=== PATIENT | female | born 1995 | race Two or more races ===

== ENCOUNTER → 2024-08-20 | Outpatient (CLI) | payer BC, SELFPAY ==
[2024-08-20 14:01] LABS: Basophils % (Auto) 0 % (0-2.5); Eosinophils # (Auto) 0.2 Thou/mm3 (0.0-0.5); Eosinophils % (Auto) 3 % (0-10); Hematocrit 30.7 % (36.0-46.0); Hemoglobin 9.4 g/dL (12.0-16.0); Immature Granulocytes % (Auto) 0 % (0-0); Immature Granulocytes Auto 0.01 Thou/mm3 (0.00-0.00); Immature Reticulocyte Fraction 17.4 % (3.0-15.9); Lymphocytes # (Auto) 2.5 Thou/mm3 (1.0-4.8); Lymphocytes % (Auto) 45 % (10-50); Mean Corpuscular HGB Conc 30.6 g/dl (31.0-37.0); Mean Corpuscular Hemoglobin 24.4 pg (25.0-35.0); Mean Corpuscular Volume 80 fL (80-100); Monocytes # (Auto) 0.6 Thou/mm3 (0.0-0.8); Monocytes % (Auto) 10 % (0-12); Neutrophils # (Auto) 2.3 Thou/mm3 (1.8-7.7); Neutrophils % (Auto) 42 % (37-80); Nucleated Red Blood Cell % 0 /100 WBC (0); Platelet Count 323 Thou/mm3 (140-440); RDW Standard Deviation 45.1 fL (36.4-46.3); Red Blood Count 3.86 Miln/mm3 (4.00-5.20); Reticulocyte % (Auto) 0.7 % (0.5-1.5); Reticulocyte Absolute Auto 27.8 Biln/L (25.0-75.0); Reticulocyte Hgb Content 28.2 pg (28.0-35.0); White Blood Count 5.5 Thou/mm3 (3.6-11.0)
[2024-08-20 14:27] LABS: Alanine Aminotransferase 23 U/L (10-49); Albumin/Globulin Ratio 1.5 (1.2-2.2); Alkaline Phosphatase 73 U/L (46-116); Anion Gap 7 (7-16); Aspartate Amino Transferase 38 U/L (0-34); BUN/Creatinine Ratio 20 Ratio (12-20); Bilirubin,Total 0.4 mg/dL (0.3-1.2); Blood Urea Nitrogen 12 mg/dL (9-23); Calcium 9.3 mg/dL (8.3-10.6); Calcium (Corrected) 9.3 mg/dL (8.5-10.1); Carbon Dioxide 26.3 mMol/L (20.0-31.0); Chloride 106 mMol/L (98-107); Creatinine (Component) 0.6 mg/dL (0.6-1.3); Globulin 2.6 gm/dL (2.3-3.5); Glucose 77 mg/dL (74-106); Osmolality,Calculated 276 (275-295); Potassium 3.7 mMol/L (3.4-5.1); Sodium 139 mMol/L (136-145); Total Protein 6.6 gm/dL (5.7-8.2); eGFR > 60 See Note
[2024-08-20 14:30] LABS: Folate 11.13 ng/mL (>5.38); Vitamin B12 829 pg/mL (211-911)
[2024-08-20 14:41] LABS: Ferritin 5 ng/mL (7.3-270.7); Total Iron Binding Capacity 369 mcg/dL (250-425)
[2024-08-20 14:50] LABS: Iron 22 mcg/dL (50-170); Percent Iron Saturation 5 % (20-55); Unsaturated Iron Binding 347 (225-295)
== END | disposition home or self-care (01) ==
LOC: SCTO 13:21
PROVIDERS: PCP Family Medicine; Referring Provider Internal Medicine Hematology & Oncology; Visit Provider Internal Medicine Hematology & Oncology
DX: D50.9 Iron deficiency anemia, unspecified (principal)
CPT/HCPCS: 36415; 80053; 82607; 82728; 82746; 83540; 83550; 85025; 85046

== ENCOUNTER 2024-08-21 10:49 | Outpatient (RCR) | payer BC, SELFPAY | END 2024-08-25 23:59 | disposition home or self-care (01) | LOC: SCTC 10:49 | PROVIDERS: PCP Nurse Practitioner Family; Referring Provider Nurse Practitioner Family; Visit Provider Nurse Practitioner Family | DX: D50.9 Iron deficiency anemia, unspecified (principal); N92.0 Excessive and frequent menstruation with regular cycle; F17.290 Nicotine dependence, other tobacco product, uncomplicated; Z86.718 Personal history of other venous thrombosis and embolism; Z79.01 Long term (current) use of anticoagulants | CPT/HCPCS: 99212; G0463 ==

== ENCOUNTER → 2024-08-22 | Outpatient (CLI) | payer BC, MEDICAID, SELFPAY ==
[2024-08-23 15:42] LABS: BVAG Candida Positive (Negative); Bacterial Vaginosis Markers Negative (Negative); Candida glabrata Negative (Negative); Candida krusei PCR Negative (Negative); Trichomonas Negative (Negative)
== END | disposition home or self-care (01) ==
PROVIDERS: PCP Specialist; Referring Provider Specialist; Visit Provider Specialist
DX: B37.89 Other sites of candidiasis (principal); N76.0 Acute vaginitis; A59.01 Trichomonal vulvovaginitis
CPT/HCPCS: 81514

== ENCOUNTER → 2024-08-22 | Outpatient (CLI) | payer BC, MEDICAID, SELFPAY ==
[2024-08-22 09:37] LABS: Basophils % (Auto) 1 % (0-2.5); Eosinophils # (Auto) 0.2 Thou/mm3 (0.0-0.5); Eosinophils % (Auto) 4 % (0-10); Hematocrit 31.7 % (36.0-46.0); Hemoglobin 9.7 g/dL (12.0-16.0); Immature Granulocytes % (Auto) 0 % (0-0); Immature Granulocytes Auto 0.01 Thou/mm3 (0.00-0.00); Immature Reticulocyte Fraction 23.5 % (3.0-15.9); Lymphocytes # (Auto) 1.8 Thou/mm3 (1.0-4.8); Lymphocytes % (Auto) 41 % (10-50); Mean Corpuscular HGB Conc 30.6 g/dl (31.0-37.0); Mean Corpuscular Hemoglobin 24.6 pg (25.0-35.0); Mean Corpuscular Volume 80 fL (80-100); Monocytes # (Auto) 0.2 Thou/mm3 (0.0-0.8); Monocytes % (Auto) 6 % (0-12); Neutrophils # (Auto) 2.1 Thou/mm3 (1.8-7.7); Neutrophils % (Auto) 48 % (37-80); Nucleated Red Blood Cell % 0 /100 WBC (0); Platelet Count 355 Thou/mm3 (140-440); Red Blood Count 3.95 Miln/mm3 (4.00-5.20); Reticulocyte % (Auto) 1.1 % (0.5-1.5); Reticulocyte Absolute Auto 42.3 Biln/L (25.0-75.0); Reticulocyte Hgb Content 25.6 pg (28.0-35.0); White Blood Count 4.3 Thou/mm3 (3.6-11.0)
[2024-08-22 09:56] LABS: Carbon Dioxide 29.1 mMol/L (20.0-31.0); Chloride 101 mMol/L (98-107); Sodium 138 mMol/L (136-145)
[2024-08-22 09:57] LABS: Alanine Aminotransferase 369 U/L (10-49); Albumin, Serum 4.6 gm/dL (3.5-5.0); Albumin/Globulin Ratio 1.5 (1.2-2.2); Alkaline Phosphatase 93 U/L (46-116); Anion Gap 8 (7-16); Aspartate Amino Transferase 472 U/L (0-34); BUN/Creatinine Ratio 12 Ratio (12-20); Beta HCG,Quantitative < 1 mIU/mL (<5.0); Bilirubin,Total 0.4 mg/dL (0.3-1.2); Blood Urea Nitrogen 7 mg/dL (9-23); Calcium 9.5 mg/dL (8.3-10.6); Calcium (Corrected) 9.5 mg/dL (8.5-10.1); Creatinine (Component) 0.6 mg/dL (0.6-1.3); Glucose 78 mg/dL (74-106); Osmolality,Calculated 272 (275-295); Total Protein 7.6 gm/dL (5.7-8.2); eGFR > 60 See Note
[2024-08-22 10:07] LABS: Folate 13.94 ng/mL (>5.38); Vitamin B12 1079 pg/mL (211-911)
[2024-08-22 10:29] LABS: D-Dimer 910 ng/mL (<600)
[2024-08-22 11:29] LABS: Ferritin 15 ng/mL (7.3-270.7); Total Iron Binding Capacity 390 mcg/dL (250-425)
[2024-08-22 11:40] LABS: Iron 15 mcg/dL (50-170); Percent Iron Saturation 3 % (20-55); Unsaturated Iron Binding 375 (225-295)
[2024-08-22 17:38] LABS: RA Screen Negative (Negative)
[2024-08-29 07:10] LABS: Protein C Activity* 97 % normal (70-180); Protein S Activity* 56 % normal (60-140)
[2024-09-02 15:37] LABS: Cardiolipin Ab IgA <2.0 APL-U/mL; Cardiolipin Ab IgG <2.0 GPL-U/mL; Sjogren's antibody (SS-A) <1.0 NEG AI (<1.0 NEGATIVE); Sm Antibody <1.0 NEG AI (<1.0 NEGATIVE)
[2024-09-03 06:55] LABS: ANA Screen, IFA NEGATIVE (NEGATIVE); Actin Antibody (IgG)* <20 U; Complement Component C3* 134 mg/dL (83-193); Complement Component C4c* 23 mg/dL (15-57); DNA (ds) Antibody* <1 IU/mL; Factor V Leiden Mutation NEGATIVE; Gastric Parietal Cell Ab* <20.0 U; Mitochondrial Ab NEGATIVE (NEGATIVE); Myocardial Ab, IF NEGATIVE (NEGATIVE); Scl-70 Antibody* <1.0 NEG AI (<1.0 NEGATIVE); Sjogren's Antibody (SS-B) <1.0 NEG AI (<1.0 NEGATIVE); Sm/RNP Antibody <1.0 NEG AI (<1.0 NEGATIVE); Striated Muscle Ab NEGATIVE (NEGATIVE); Thyroid Peroxidase Antibodies* 4 IU/mL (<9)
[2024-09-03 06:56] LABS: B2-Glycoprotein I Ab IgA <2.0 U/mL; B2-Glycoprotein I Ab IgG <2.0 U/mL; B2-Glycoprotein I Ab IgM 6.7 U/mL; Cardiolipin Ab IgM 2.4 MPL-U/mL; Phos.Serine Ab IgG <9 U (< OR = 30); Phos.Serine Ab IgM 39 U (< OR = 30)
== END | disposition home or self-care (01) ==
PROVIDERS: PCP Nurse Practitioner Family; Referring Provider Nurse Practitioner Family; Visit Provider Nurse Practitioner Family
DX: D50.9 Iron deficiency anemia, unspecified (principal)
CPT/HCPCS: 36415; 80053; 81241; 82607; 82728; 82746; 83516; 83540; 83550; 84702; 85025; 85046; 85303; 85306; 85379; 86015; 86038; 86146; 86147; 86148; 86160; 86225; 86235; 86255; 86376; 86430

== ENCOUNTER → 2024-08-28 | Outpatient (CLI) | payer BC, MEDICAID, SELFPAY ==
[2024-08-28 15:44] LABS: Misc Send Out* See Sep Rpt
[2024-08-28 16:44] LABS: Alanine Aminotransferase 83 U/L (10-49); Albumin, Serum 4.3 gm/dL (3.5-5.0); Albumin/Globulin Ratio 1.7 (1.2-2.2); Alkaline Phosphatase 93 U/L (46-116); Anion Gap 7 (7-16); Aspartate Amino Transferase 23 U/L (0-34); BUN/Creatinine Ratio 14 Ratio (12-20); Bilirubin,Total 0.3 mg/dL (0.3-1.2); Blood Urea Nitrogen 11 mg/dL (9-23); Calcium 9.1 mg/dL (8.3-10.6); Calcium (Corrected) 9.1 mg/dL (8.5-10.1); Carbon Dioxide 27.9 mMol/L (20.0-31.0); Chloride 100 mMol/L (98-107); Creatinine (Component) 0.8 mg/dL (0.6-1.3); Globulin 2.5 gm/dL (2.3-3.5); Glucose 320 mg/dL (74-106); Osmolality,Calculated 281 (275-295); Potassium 4.2 mMol/L (3.4-5.1); Sodium 135 mMol/L (136-145); Total Protein 6.8 gm/dL (5.7-8.2); eGFR > 60 See Note
[2024-08-28 17:06] LABS: Glucose Estimated Average 292 mg/dL (80-131); Hemoglobin A1C 11.8 % Hgb (4.8-6.0)
[2024-09-04 06:25] LABS: C-Peptide* <0.10 ng/mL (0.80-3.85); Insulin* 20.8 uIU/mL (< OR = 18.4)
== END | disposition home or self-care (01) ==
LOC: COPL 15:14
PROVIDERS: PCP Nurse Practitioner Family; Referring Provider Internal Medicine Endocrinology, Diabetes & Metabolism; Visit Provider Internal Medicine Endocrinology, Diabetes & Metabolism
DX: E10.65 Type 1 diabetes mellitus with hyperglycemia (principal); E16.2 Hypoglycemia, unspecified
CPT/HCPCS: 36415; 80053; 83036; 83525; 84681

== ENCOUNTER 2024-09-03 16:28 | Emergency (ER) | payer BC, MEDICAID, SELFPAY ==
[2024-09-03 16:29] VITALS: BMI 20.1
[2024-09-03 16:42] VITALS: BP 118/70; PULSE 110; RESP 18; TEMP 37; O2SAT 95
--- NOTE | 2024-09-03 17:01 | PD.EDRME ---
Rapid Medical Screening Exam RME Arrival date/time: 09/03/24 16:28 29-year-old female presents emergency department complaints of left lower extremity swelling and pain patient report symptoms ongoing for last couple of weeks patient currently on Xarelto and is being followed by cancer treatment center Chief Complaint: Extremity Problem,Nontraumatic Time Seen by Provider: 09/03/24 16:59 Vital signs: Vital Signs Temperature 98.6 F 09/03/24 16:42 Pulse Rate 110 H 09/03/24 16:42 Respiratory Rate 18 09/03/24 16:42 Blood Pressure 118/70 09/03/24 16:42 Pulse Oximetry (%) 95 09/03/24 16:42 Oxygen Delivery Method Room Air 09/03/24 16:42
[2024-09-03 17:20] LABS: Basophils % (Auto) 0 % (0-2.5); Eosinophils # (Auto) 0.2 Thou/mm3 (0.0-0.5); Eosinophils % (Auto) 2 % (0-10); Hematocrit 32.1 % (36.0-46.0); Hemoglobin 9.9 g/dL (12.0-16.0); Immature Granulocytes % (Auto) 0 % (0-0); Immature Granulocytes Auto 0.01 Thou/mm3 (0.00-0.00); Lymphocytes # (Auto) 1.9 Thou/mm3 (1.0-4.8); Lymphocytes % (Auto) 25 % (10-50); Mean Corpuscular HGB Conc 30.8 g/dl (31.0-37.0); Mean Corpuscular Volume 78 fL (80-100); Monocytes # (Auto) 0.4 Thou/mm3 (0.0-0.8); Monocytes % (Auto) 5 % (0-12); Neutrophils # (Auto) 5.3 Thou/mm3 (1.8-7.7); Neutrophils % (Auto) 68 % (37-80); Nucleated Red Blood Cell % 0 /100 WBC (0); Platelet Count 438 Thou/mm3 (140-440); RDW Standard Deviation 43.3 fL (36.4-46.3); Red Blood Count 4.12 Miln/mm3 (4.00-5.20); White Blood Count 7.9 Thou/mm3 (3.6-11.0)
[2024-09-03 17:42] VITALS: BP 136/79; PULSE 102; RESP 16; TEMP 37.1; O2SAT 97
[2024-09-03 17:45] LABS: INR 0.9 (0.9-1.3); Partial Thromboplastin Time 24.1 Seconds (22.0-36.0); Prothrombin Time 10.3 Seconds (9.0-12.2)
[2024-09-03 17:46] LABS: HCG,Qualitative Serum Negative
[2024-09-03 17:58] LABS: Alanine Aminotransferase 28 U/L (10-49); Albumin, Serum 4.9 gm/dL (3.5-5.0); Albumin/Globulin Ratio 1.5 (1.2-2.2); Alkaline Phosphatase 117 U/L (46-116); Anion Gap 12 (7-16); Aspartate Amino Transferase 14 U/L (0-34); BUN/Creatinine Ratio 8 Ratio (12-20); Bilirubin,Total 0.5 mg/dL (0.3-1.2); Blood Urea Nitrogen 13 mg/dL (9-23); Calcium 9.9 mg/dL (8.3-10.6); Calcium (Corrected) 9.9 mg/dL (8.5-10.1); Chloride 95 mMol/L (98-107); Creatinine (Component) 1.6 mg/dL (0.6-1.3); Estimated Creatinine Clearance 41.6 mL/min (>60); Globulin 3.2 gm/dL (2.3-3.5); Osmolality,Calculated 289 (275-295); Potassium 4.7 mMol/L (3.4-5.1); Sodium 133 mMol/L (136-145); Total Protein 8.1 gm/dL (5.7-8.2); eGFR 45 See Note
[2024-09-03 18:09] LABS: Glucose 520 mg/dL (74-106)
[2024-09-03] MEDS: INSULIN HUM REGULAR 1 UNIT/0.01 ML (PER UNIT) 10 UNIT IV (18:40)
--- NOTE | 2024-09-03 18:42 | PD.EDEXREM ---
ED Extremity Problem RME/HPI General Chief complaint: Extremity Problem,Nontraumatic Stated complaint: DVT Time Seen by Provider: 09/03/24 16:59 Arrival date/time: 09/03/24 16:28 Limitations: no limitations RME / HPI RME / HPI Narrative: 09/03/24 16:28 29-year-old female presents emergency department complaints of left lower extremity swelling and pain patient report symptoms ongoing for last couple of weeks patient currently on Xarelto and is being followed by cancer treatment center ----- [facility] Main ED Evaluation: 29yo female with a history of PE, DVT, DM presents to the ED for a chief complaint of left leg swelling x 3 days. Patient states she is on day 9 of taking her Xarelto. She states she was told to come here for evaluation by her PCP. She denies any chest pain, shortness of breath, fever, chills or any other associated symptoms. No known allergies. Related Data Home Medications ?Medication ?Instructions ?Recorded ?Confirmed aspirin 81 mg tablet 81 mg PO QDAY 01/04/22 01/04/22 enoxaparin 60 mg/0.6 mL 60 mg subcut BID 01/04/22 01/04/22 subcutaneous syringe insulin lispro 100 unit/mL 20 unit subcut TIDWMEAL 01/04/22 01/04/22 subcutaneous pen (Admelog SoloStar U-100 Insulin lispro) prenat.vits,perez,[id number] 1 tab PO QDAY 01/04/22 01/04/22 Previous Rx's ?Medication ?Instructions ?Recorded insulin glargine 100 unit/mL (3 15 unit (0.15 mL) subcut QAM 30 01/06/22 mL) subcutaneous pen (Lantus days #4.5 mL Solostar U-100 Insulin) Allergies Allergy/AdvReac Type Severity Reaction Status Date / Time No Known Allergies Allergy Verified 09/03/24 16:32 Review of Systems Review of Systems Systems Reviewed: All systems reviewed, normal except as documented Past Medical History Past Medical History NEUROLOGIC: Negative Neurological Disorders or Seizures CARDIAC: Positive Cardiac Disorders and Deep Vein Thrombosis; Negative Congestive Heart Failure RESPIRATORY: Positive Pulmonary Embolism; Negative Chronic Obstructive Pulmonary Disease (COPD) or Asthma GASTROINTESTINAL: Negative Gastrointestinal Disorders, Hepatitis or Colorectal Cancer GENITOURINARY: Negative Genitourinary Disorders or Renal Disease REPRODUCTIVE: Positive Previous Pregnancies (X2); Negative Breast Cancer MUSCULOSKELETAL: Negative Musculoskeletal Disorders or Bone Cancer ENDOCRINE: Positive Endocrine Disorders and Diabetes Mellitus Type 1 (ON INSULIN); Negative Diabetes Mellitus Type 2 HEMATOLOGIC: Positive Blood Disorders and Clotting Problems; Negative Sickle Cell Disease OTHER HISTORY: Positive Hospitalization (X1 DELIVERY, DVT); Negative Autoimmune Disease, Down Syndrome, Developmental Delay, Shingles, Falls, Blood Transfusions, Blood Transfusion Reaction, Anesthesia Reactions, Organ Transplant, Chemotherapy, Radiation Therapy, Hyperbaric Therapy, MRSA, VRSA, Vancomycin-Resistant Enterococci, Human Immunodeficiency Virus (HIV), Chicken Pox, Measles, Mumps, Rubella ([place] Measles), Pertussis, Clostridium Difficile, Cancer, Breast Cancer, Cervical Cancer, Colorectal Cancer, Lung Cancer or Ovarian Cancer Family History FAMILY HISTORY: Negative Family Psychiatric Problems, Family Respiratory Disorders, Family Cardiac Disorders, Family Gastrointestinal Problems, Family Cancer, Family Surgery or Family Anesthesia Reaction Surgical History SURGICAL: Positive Section; Negative Organ Transplant Social History SMOKING STATUS: Current every day smoker SECOND HAND EXPOSURE: No SUBSTANCE USE: does not use ED Exam General Limitations: Present no limitations General appearance: Present alert and in no apparent distress Head Head exam: Present atraumatic Eye Eye exam: Present normal appearance, PERRL and EOMI ENT ENT exam: Present normal exam, normal oropharynx and mucous membranes moist Neck Neck exam: Present normal inspection, full ROM and trachea midline Chest Chest inspection: Present normal inspection and symmetric chest wall rise Respiratory Respiratory exam: Present normal lung sounds bilaterally Cardiovascular Cardiovascular exam: Present regular rate, normal rhythm and normal heart sounds Abdominal Exam Abdominal exam: Present soft and normal bowel sounds Extremities Exam Extremities exam: Present full ROM and other (swelling to the left leg) Back Exam Back exam: Present normal inspection and full ROM Neurological Exam Neurological exam: Present alert, oriented X3 and CN II-XII intact Psychiatric Psychiatric exam: Present normal affect and normal mood Skin Skin exam: Present warm, dry, intact and normal color Course Quality Measures none Orders Category Date Time Status Insert IV NOW Care 09/03/24 19:34 Active CBC Stat Lab 09/03/24 17:09 Completed Comprehensive Metabolic Panel Stat Lab 09/03/24 17:09 Completed HCG,Qualitative Serum Stat Lab 09/03/24 17:09 Completed Partial Thromboplastin Time Stat Lab 09/03/24 17:09 Completed Prothrombin Time with INR Stat Lab 09/03/24 17:09 Completed Insulin Regular Med 09/03/24 18:16 Discontinued 10 unit IV X1 ONE Rivaroxaban [Xarelto] Med 09/03/24 19:45 Discontinued 15 mg PO X1 ONE Sodium Chloride 0.9% 1000 ml [Ns] 1,000 ml Med 09/03/24 19:33 Discontinued IV 999 mls/hr Reevaluation(s) Reevaluation #1: Repeat FSBS is 261. Patient is stable to be discharged home. Time: 20:34 Vital Signs Vital signs: Vital Signs Temperature 98.6 F 09/03/24 16:42 Pulse Rate 110 H 09/03/24 16:42 Respiratory Rate 18 09/03/24 16:42 Blood Pressure 118/70 09/03/24 16:42 Pulse Oximetry (%) 95 09/03/24 16:42 Oxygen Delivery Method Room Air 09/03/24 16:42 Pulse ox is 95% on room air, which is normal according to my interpretation. Extremity Problem Patient data External records reviewed:: [facility] previous records (Reviewed outpatient oncology note from 05/23/23 - patient has a history of bilateral PE and DVT.) Clinical information provided by:: patient Social determinants that could affect healthcare access:: none Patient has the following chronic illnesses:: DM How is presenting disease/condition affected by chronic disease/condition?: uneffected by Evaluation data The following diagnostics were reviewed and interpreted by me:: lab results Lab and/or radiology exams considered but not ordered:: none Interpretation Summary: WBC count is normal, HnH is stable, Platelets are normal, Glucose is elevated at 520, Creatinine is elevated at 1.6, HCG is negative, according to my interpretation. Medications / Prescriptions Medications or Prescriptions considered but not ordered:: none Medication administrations:: Medication Administration History Discontinued Medications Sodium Chloride (Ns) 1,000 mls @ 999 mls/hr IV .Q1H1M ONE Stop: 09/03/24 20:33 Last Admin: 09/03/24 19:34 Dose: 999 mls/hr Documented By: DB Insulin Human Regular (Insulin Hum Regular 1 Unit/0.01 Ml (Per Unit)) 10 unit IV X1 ONE Stop: 09/03/24 18:17 Last Admin: 09/03/24 18:40 Dose: 10 unit Documented By: EH Co-signed By: ED Rivaroxaban 10 mg/ Rivaroxaban (5 mg) 15 mg PO X1 ONE Stop: 09/03/24 19:46 Last Admin: 09/03/24 19:49 Dose: 15 mg Documented By: DB see above Consultations Consultation(s) initiated? (list below): No Diagnosis Extremity Problem Differential Diagnosis: other (DVT, occlusion, canker cyst) Most likely diagnosis given after review of the tests above:: see below Admission Indicated Admission indicated?: not indicated Admission Request Was there a request for admission?: No Disposition Plan Disposition Plan: Discharge Discharge Attestation Discharge Attestation: The patient and all family members were given an opportunity to ask questions and understood the discharge instructions. Discharge instructions specifically effects, indications for sooner follow up or return to the emergency department, and the expected course of current diagnosis. Patient condition: Stable Discharge Plan Plan Patient Disposition: HOME (Self Care) Patient condition on transfer: Stable Prescriptions/Referrals Prescriptions/Med Rec: No Action enoxaparin 60 mg/0.6 mL syringe 60 mg subcut BID insulin lispro [Admelog SoloStar U-100 Insulin] 100 unit/mL Insulin Pen 20 unit SUBCUT TIDWMEAL aspirin 81 mg Tablet 81 mg PO QDAY prenat.vits,perez,[id number] Tablet 1 tab PO QDAY Lantus Solostar U-100 Insulin 100 unit/mL (3 mL) insulin pen 15 unit subcut QAM 30 Days Qty: 4.5 2RF Referrals: Eligio Jarrell MD [Primary Care Provider] - In 1 week Problem List Clinical Impression: Acute hyperglycemia Patient/Caregiver Discharge Instructions Print Language: Maltese Stand Alone Forms: [employer] Info., Patient Portal Info Letter
[2024-09-03 19:26] VITALS: BP 129/68; PULSE 122; RESP 16; TEMP 37.5; O2SAT 98
[2024-09-03] MEDS: SODIUM CHLORIDE 0.9% 1000 ML 1,000 ML 999 ML IV (19:34)
[2024-09-03] MEDS: RIVAROXABAN 10 MG, RIVAROXABAN 5 MG 15 MG PO (19:49)
[2024-09-03 20:39] VITALS: BP 112/72; PULSE 100; RESP 19; TEMP 37.1; O2SAT 99
== END 2024-09-03 20:39 | disposition home or self-care (01) ==
PROVIDERS: Nurse Practitioner Primary Care; Emergency Provider Emergency Medicine; PCP Family Medicine
DX: E10.65 Type 1 diabetes mellitus with hyperglycemia (principal); Z79.4 Long term (current) use of insulin
CPT/HCPCS: 36415; 80053; 84703; 85025; 85610; 85730; 99284; J1815; J7030; A9270

== ENCOUNTER → 2024-09-03 | Outpatient (CLI) | payer BC, MEDICAID, SELFPAY ==
--- NOTE | 2024-09-03 15:19 | XR_ITS ---
Examination: Duplex scan of the lower extremity, unilateral left complete Date and time of exam: September 03, 2024 at 1540 hours INDICATIONS: Left leg swelling and pain beginning 3 weeks ago, history DVT, bilateral ultrasound study February 2019 Technique: Duplex scan of the extremity veins using B-mode/grayscale imaging and Doppler spectral analysis and color flow Attention is directed to internal echogenicity, compression and augmentation involving these veins, color flow assessment, spectral analysis Findings: Acute occlusive deep vein thrombus involving the entire deep venous system lower leg, common femoral superficial femoral, popliteal, peroneal, posterior tibial, greater saphenous, including visible iliac vein IMPRESSION: Extensive acute occlusive deep vein thrombus
== END | disposition home or self-care (01) ==
PROVIDERS: PCP Nurse Practitioner Family; Referring Provider Nurse Practitioner Family; Visit Provider Nurse Practitioner Family
DX: I82.402 Acute embolism and thrombosis of unspecified deep veins of left lower extremity (principal)
CPT/HCPCS: 93971

== ENCOUNTER 2024-09-13 13:00 | Outpatient (RCR) | payer BC, MEDICAID, SELFPAY | END 2024-09-25 23:59 | disposition home or self-care (01) | LOC: SCTC 13:00 | PROVIDERS: PCP Nurse Practitioner Family; Referring Provider Nurse Practitioner Family; Visit Provider Nurse Practitioner Family | DX: E61.1 Iron deficiency (principal); I82.402 Acute embolism and thrombosis of unspecified deep veins of left lower extremity; D68.59 Other primary thrombophilia; E10.9 Type 1 diabetes mellitus without complications; Z79.4 Long term (current) use of insulin; N92.0 Excessive and frequent menstruation with regular cycle | CPT/HCPCS: 96365; 96366; 96375; 99212; A4216; J2916; J2919; J3490; J7040; G0463 ==

== ENCOUNTER → 2024-09-13 | Outpatient (CLI) | payer BC, MEDICAID, SELFPAY ==
[2024-09-13 09:54] LABS: Basophils % (Auto) 0 % (0-2.5); Eosinophils # (Auto) 0.2 Thou/mm3 (0.0-0.5); Eosinophils % (Auto) 4 % (0-10); Hematocrit 31.1 % (36.0-46.0); Hemoglobin 9.4 g/dL (12.0-16.0); Immature Granulocytes % (Auto) 0 % (0-0); Immature Granulocytes Auto 0.02 Thou/mm3 (0.00-0.00); Immature Reticulocyte Fraction 17.6 % (3.0-15.9); Lymphocytes # (Auto) 2.2 Thou/mm3 (1.0-4.8); Lymphocytes % (Auto) 34 % (10-50); Mean Corpuscular HGB Conc 30.2 g/dl (31.0-37.0); Mean Corpuscular Hemoglobin 23.6 pg (25.0-35.0); Mean Corpuscular Volume 78 fL (80-100); Monocytes # (Auto) 0.4 Thou/mm3 (0.0-0.8); Monocytes % (Auto) 6 % (0-12); Neutrophils # (Auto) 3.5 Thou/mm3 (1.8-7.7); Neutrophils % (Auto) 55 % (37-80); Nucleated Red Blood Cell % 0 /100 WBC (0); Platelet Count 424 Thou/mm3 (140-440); RDW Standard Deviation 47.5 fL (36.4-46.3); Red Blood Count 3.98 Miln/mm3 (4.00-5.20); Reticulocyte % (Auto) 1.4 % (0.5-1.5); Reticulocyte Absolute Auto 53.7 Biln/L (25.0-75.0); Reticulocyte Hgb Content 20.4 pg (28.0-35.0); White Blood Count 6.3 Thou/mm3 (3.6-11.0)
[2024-09-13 10:10] LABS: Vitamin B12 850 pg/mL (211-911)
[2024-09-13 10:15] LABS: Alanine Aminotransferase 11 U/L (10-49); Albumin, Serum 4.2 gm/dL (3.5-5.0); Albumin/Globulin Ratio 1.4 (1.2-2.2); Alkaline Phosphatase 88 U/L (46-116); Anion Gap 11 (7-16); Aspartate Amino Transferase 11 U/L (0-34); BUN/Creatinine Ratio 23 Ratio (12-20); Beta HCG,Quantitative < 1 mIU/mL (<5.0); Bilirubin,Total 0.6 mg/dL (0.3-1.2); Blood Urea Nitrogen 16 mg/dL (9-23); Calcium 9.3 mg/dL (8.3-10.6); Calcium (Corrected) 9.3 mg/dL (8.5-10.1); Carbon Dioxide 24.3 mMol/L (20.0-31.0); Chloride 103 mMol/L (98-107); Creatinine (Component) 0.7 mg/dL (0.6-1.3); Ferritin 34 ng/mL (7.3-270.7); Globulin 2.9 gm/dL (2.3-3.5); Glucose 183 mg/dL (74-106); Osmolality,Calculated 281 (275-295); Potassium 4.4 mMol/L (3.4-5.1); Sodium 138 mMol/L (136-145); Total Protein 7.1 gm/dL (5.7-8.2); eGFR > 60 See Note
[2024-09-13 13:55] LABS: Iron 34 mcg/dL (50-170); Percent Iron Saturation 8 % (20-55); Total Iron Binding Capacity 384 mcg/dL (250-425); Unsaturated Iron Binding 350 (225-295)
== END | disposition home or self-care (01) ==
LOC: SCTO 08:37
PROVIDERS: PCP Nurse Practitioner Family; Referring Provider Nurse Practitioner Family; Visit Provider Nurse Practitioner Family
DX: D50.9 Iron deficiency anemia, unspecified (principal)
CPT/HCPCS: 36415; 80053; 82607; 82728; 82746; 83540; 83550; 84702; 85025; 85046

== ENCOUNTER 2024-09-24 23:59 | Inpatient (IN) | payer BC, MEDICAID, SELFPAY ==
[2024-09-25] VITALS (33 sets, daily range): BP systolic 84–196; BP diastolic 49–92; PULSE 91–143; RESP 12–99; TEMP 36.7–37; O2SAT 98–100; BMI 23.8; BMI 20.6
--- NOTE | 2024-09-25 00:32 | PD.EDRME ---
Rapid Medical Screening Exam RME Arrival date/time: 09/24/24 23:59 29-year-old female past medical history type 1 diabetes presents emergency department complaining of nausea vomiting and elevated blood sugar. Chief Complaint: General Adult/Misc Complain Time Seen by Provider: 09/25/24 00:18 Vital signs: Vital Signs Temperature 98.6 F 09/25/24 00:27 Pulse Rate 143 H 09/25/24 00:27 Respiratory Rate 22 H 09/25/24 00:27 Blood Pressure 111/73 09/25/24 00:27 Pulse Oximetry (%) 100 09/25/24 00:27 Oxygen Delivery Method Room Air 09/25/24 00:27 Vital signs reviewed by provider: Yes
--- NOTE | 2024-09-25 00:33 | EKG_ITS ---
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
[2024-09-25] MEDS: ONDANSETRON ODT 4 MG TABRAP PO (00:36)
--- NOTE | 2024-09-25 00:42 | PD.EDADULT ---
ED General RME/HPI General Chief complaint: General Adult/Misc Complain Stated complaint: POSS DKA, FS 400, N/V Time Seen by Provider: 09/25/24 00:18 Arrival date/time: 09/24/24 23:59 RME / HPI RME / HPI narrative: 09/24/24 23:59 29-year-old female past medical history type 1 diabetes presents emergency department complaining of nausea vomiting and elevated blood sugar. ------ Dr. Day?s Main ED Evaluation: 29yo female with pmhx DMI presents to the ED for complaint of N/V and elevated blood sugar since last night. Patient states she's had high blood sugar since last night, reporting she's had persistent nausea and vomiting. She states she hasn't been monitoring her blood sugars like she used to because her pump and she hasn't changed it yet. She states her symptoms persisted and was unable to control her blood sugar, so she came in for evaluation. Patient denies any diarrhea, cough, fever, chills, UTI symptoms. chest pain, abdominal pain or any other associated symptoms. Denies any illicit drug use. No known allergies. Related Data Home Medications ?Medication ?Instructions ?Recorded ?Confirmed aspirin 81 mg tablet 81 mg PO QDAY 01/04/22 01/04/22 enoxaparin 60 mg/0.6 mL 60 mg subcut BID 01/04/22 01/04/22 subcutaneous syringe insulin lispro 100 unit/mL 20 unit subcut TIDWMEAL 01/04/22 01/04/22 subcutaneous pen (Admelog SoloStar U-100 Insulin lispro) prenat.vits,perez,xoz-gsiy-ejteb 1 tab PO QDAY 01/04/22 01/04/22 Previous Rx's ?Medication ?Instructions ?Recorded insulin glargine 100 unit/mL (3 15 unit (0.15 mL) subcut QAM 30 01/06/22 mL) subcutaneous pen (Lantus days #4.5 mL Solostar U-100 Insulin) Allergies Allergy/AdvReac Type Severity Reaction Status Date / Time No Known Allergies Allergy Verified 09/03/24 16:32 Review of Systems Review of Systems Systems Reviewed: All systems reviewed, normal except as documented Narrative Review of Systems: Gen: No fever, no chills, no weight loss, + elevated blood sugar EYES: No discharge, no visual changes, no pain HEENT: No ear pain, no congestion, no sore throat PULM: No shortness of breath, no cough, no congestion CV: No chest pain, no dyspnea on exertion, no palpitations GI: + nausea, + vomiting, no diarrhea, no pain, no constipation : No frequency, no urgency, no dysuria Musc/skel: No joint pain, no back pain Skin: No rash. Warm and dry. Psyc: No hallucinations, no depression Heme/Lymph: No easy bleeding or bruising tendencies Neuro: No weakness, no headache ED Exam Narrative Physical exam: GENERAL APPEARANCE: alert and oriented x 4, appears ill, no acute distress VITALS: All vitals were reviewed and the pulse ox is 100% on room air, which is normal according to my interpretation. HEENT: Normocephalic, atraumatic; pupils equal, round, reactive to light; EOMI; mucous membranes pink, dry; oropharynx clear NECK: Supple LUNGS: CTABL; no wheezes, no rales, no rhonchi; tachypneic HEART: Tachycardic, regular rhythm; normal S1, S2; no murmurs ABDOMEN: non distended; normal BS; soft, no tenderness, no guarding, no rebound; no masses, no organomegaly, no hernia BACK: no CVA tenderness EXTREMITIES: atraumatic; no edema NEUROLOGIC: awake; alert and oriented x4; cranial nerves II-XII grossly intact; no focal sensory or motor deficits PSYCHIATRIC: appropriate mood and affect SKIN: warm, dry, normal color; no rashes Course Course Course Narrative: CXR is ordered for determining the etiology of weakness. Quality Measures none Orders Category Date Time Status Bedside Blood Glucose NOW Care 09/25/24 00:32 Active EKG (ED ONLY) *Do not use* NOW Care 09/25/24 00:33 Completed Insert IV NOW Care 09/25/24 00:32 Active EKG (ED Only) Stat Exams 09/25/24 00:33 Draft XR chest 1V portable Stat Exams 09/25/24 00:56 Taken A1C [Glycohemoglobin w (eAG)] Stat Lab 09/25/24 00:52 Completed Beta Hydroxybutyrate Stat Lab 09/25/24 00:52 Completed CBC Stat Lab 09/25/24 00:52 Completed CMP [Comprehensive Metabolic Panel] Stat Lab 09/25/24 00:52 Completed HCG,Qualitative Serum Stat Lab 09/25/24 00:52 Completed Lactic Acid [Lactate (Lactic Acid)] Stat Lab 09/25/24 00:52 Results Lipase Stat Lab 09/25/24 00:52 Completed Magnesium Stat Lab 09/25/24 00:52 Completed Urinalysis Stat Lab 09/25/24 02:14 Completed VBG [Venous Blood Gas] Stat Lab 09/25/24 00:52 Completed DiphenhydrAMINE INJ [Benadryl Inj] Med 09/25/24 02:19 Discontinued 12.5 mg IVP X1 ONE Insulin Reg 100 Units/100 ml [Myxredlin] Med 09/25/24 02:15 Discontinued 100 unit in 100 ml IV 0.1 unit/kg/hr Insulin Reg 100 Units/100 ml [Myxredlin] Med 09/25/24 02:27 Active 100 unit in 100 ml IV 0.1 unit/kg/hr Metoclopramide Inj [Reglan Inj] Med 09/25/24 02:19 Discontinued 5 mg IVP X1 ONE Ondansetron Odt [Zofran Odt] Med 09/25/24 00:31 Discontinued 4 mg PO X1 ONE Ondansetron Odt [Zofran Odt] Med 09/25/24 00:35 Discontinued 4 mg PO X1 ONE POTASSIUM CHL 10 mEq IVPB [Kcl Ivpb] Med 09/25/24 02:15 Discontinued 10 meq in 100 ml IV X1 Sodium Chloride 0.9% 1000 ml [Ns] 1,000 ml Med 09/25/24 02:16 Active IV 200 mls/hr Sodium Chloride 0.9% 1000 ml [Ns] 1,000 ml Med 09/25/24 00:56 Discontinued IV 999 mls/hr Sodium Chloride 0.9% 1000 ml [Ns] 1,000 ml Med 09/25/24 00:57 Discontinued IV 999 mls/hr Vital Signs Vital signs: Vital Signs Temperature 98.6 F 09/25/24 00:27 Pulse Rate 143 H 09/25/24 00:27 Respiratory Rate 22 H 09/25/24 00:27 Blood Pressure 111/73 09/25/24 00:27 Pulse Oximetry (%) 100 09/25/24 00:27 Oxygen Delivery Method Room Air 09/25/24 00:27 [facility] Patient data External records reviewed:: [facility] previous records (Per chart review, patient was seen here on 09/03/24 for acute hyperglycemia.) Clinical information provided by:: patient Social determinants that could affect healthcare access:: none Patient has the following chronic illnesses:: PE, DVT, DM How is presenting disease/condition affected by chronic disease/condition?: caused by Evaluation data The following diagnostics were reviewed and interpreted by me:: lab results, radiology exam(s) and EKG tracing(s) Lab and/or radiology exams considered but not ordered:: none Interpretation Summary: WBC count is elevated at 15.4, Platelets are elevated at 609, A1C is 11.6, Lactic Acid is elevated at 3.4, Beta Hydroxybutyrate is elevated, CO2 is less than 10, Anion Gap is 22, Glucose is elevated at 344, HCG is negative, according to my interpretation. CXR shows normal cardiac silhouette, normal sharp diaphragmatic edge, no infiltrates, normal costophrenic angles, according to my interpretation. EKG done at 0055. sinus tachycardia, rate of 136, right axis deviation, no ectopy, no acute ischemia, according to my interpretation. Medications Medications considered but not ordered:: none Medication administrations:: Medication Administration History Sodium Chloride (Ns) 1,000 mls @ 200 mls/hr IV .Q5H CATY Stop: 10/25/24 02:15 Last Admin: 09/25/24 02:44 Dose: 200 mls/hr Documented By: MARCELINO Insulin Human Regular (Myxredlin) 100 unit in 100 mls @ 5.08 mls/hr IV .[id number] PRN; Protocol PRN Reason: PER PROTOCOL Stop: 10/25/24 02:26 Last Admin: 09/25/24 02:56 Dose: 0.1 unit/kg/hr, 5.08 mls/hr Documented By: MARCELINO Co-signed By: SF Discontinued Medications Diphenhydramine HCl (Diphenhydramine Inj 50 Mg/Ml Vial) 12.5 mg IVP X1 ONE Stop: 09/25/24 02:20 Last Admin: 09/25/24 02:44 Dose: 12.5 mg Documented By: MARCELINO Sodium Chloride (Ns) 1,000 mls @ 999 mls/hr IV .Q1H1M ONE Stop: 09/25/24 01:56 Last Infusion: 09/25/24 01:51 Dose: Infused Documented By: Admin: 09/25/24 01:05 Dose: 999 mls/hr Documented By: MARCELINO Sodium Chloride (Ns) 1,000 mls @ 999 mls/hr IV .Q1H1M ONE Stop: 09/25/24 01:57 Last Infusion: 09/25/24 01:52 Dose: Infused Documented By: Admin: 09/25/24 01:05 Dose: 999 mls/hr Documented By: MARCELINO Insulin Human Regular (Myxredlin) 100 unit in 100 mls @ 5.897 mls/hr IV .[id number] PRN; Protocol PRN Reason: PER PROTOCOL Stop: 10/25/24 02:14 Potassium Chloride (Kcl Ivpb) 10 meq in 100 mls @ 100 mls/hr IV X1 ONE Stop: 09/25/24 03:14 Last Admin: 09/25/24 02:45 Dose: 100 mls/hr Documented By: MARCELINO Metoclopramide HCl (Metoclopramide Inj 5 Mg/Ml Vial 2 Ml) 5 mg IVP X1 ONE; Protocol Stop: 09/25/24 02:20 Last Admin: 09/25/24 02:44 Dose: 5 mg Documented By: MARCELINO Ondansetron HCl (Ondansetron Odt 4 Mg Tabrap) 4 mg PO X1 ONE; Protocol Stop: 09/25/24 00:32 Last Admin: 09/25/24 00:36 Dose: 4 mg Documented By: LUZ Ondansetron HCl (Ondansetron Odt 4 Mg Tabrap) 4 mg PO X1 ONE; Protocol Stop: 09/25/24 00:36 Last Admin: 09/25/24 00:36 Dose: Not Given Documented By: OA Non-Admin Reason: Duplicate Medication on eMAR see above Consultations Consultation(s) initiated? (list below): Yes Consultation #1 (Physician, Specialty, Details): Discussed case with [Dr. Oneal - ICU resident] from Hospitalist service regarding admission. Discussed patients ED course, exam findings, labs, and radiology results. The Hospitalist [agrees] to accept the patient for admission. Time: 03:15 Diagnosis Differential Diagnosis ED Complaint MDM: DKA, hyperglycemia without ketosis, dehydration, electrolyte abnormality Most likely diagnosis given after review of the tests above:: see below Admission Indicated Admission indicated?: indicated Explain why admission is indicated or not indicated:: Patient is in DKA, requiring admission to the ICU. Admission Request Was there a request for admission?: Yes Admission Attestation Admission request attestation: Discussed case with [] from Hospitalist service regarding admission. Discussed patients ED course, exam findings, labs, and radiology results. The Hospitalist [agrees,declines] to accept the patient for admission. Disposition Plan Disposition Plan: Admit Medical Decision Making MDM Narrative MDM Narrative: Scribe Attestation: 09/25/24 - Lizzie Osman am scribing for and in the presence of Dr. Day. Differential Diagnosis Differential Diagnosis: DKA, hyperglycemia without ketosis, dehydration, electrolyte abnormality Lab Data 09/25/24 00:52 09/25/24 00:52 Labs: Lab Results 09/25/24 09/25/24 Range/Units 00:52 02:14 WBC 15.4 H (3.6-11.0) Thou/mm3 RBC 5.19 (4.00-5.20) Miln/mm3 Hgb 12.4 (12.0-16.0) g/dL Hct 42.7 (36.0-46.0) % MCV 82 (80-100) fL MCH 23.9 L (25.0-35.0) pg MCHC 29.0 L (31.0-37.0) g/dl RDW Std Deviation 54.7 H (36.4-46.3) fL Plt Count 609 H D (140-440) Thou/mm3 Neut % (Auto) 88 H (37-80) % Lymph % (Auto) 8 L (10-50) % Evangeline % (Auto) 4 (0-12) % Eos % (Auto) 0 (0-10) % Baso % (Auto) 0 (0-2.5) % Neut # (Auto) 13.6 H (1.8-7.7) Thou/mm3 Lymph # (Auto) 1.2 (1.0-4.8) Thou/mm3 Ev[place]eline # (Auto) 0.6 (0.0-0.8) Thou/mm3 Eos # (Auto) 0.0 (0.0-0.5) Thou/mm3 Baso # (Auto) 0.0 (0.0-0.2) Thou/mm3 Immature Gran # (Auto) 0.06 H (0.00-0.00) Thou/mm3 Absolute Nucleated RBC 0.00 (0.00-0.00) Thou/mm3 Immature Gran % 0 (0-0) % Nucleated RBC % 0 (0) /100 WBC VBG pH 7.07 L (7.33-7.66) VBG pCO2 33 L (36-56) mmHg VBG pO2 32 (15-58) mmHg VBG O2 Sat (Alexandrea) 48 L (96-97) % VBG Base Excess -19 L (-3-3) Sodium 135 L (136-145) mMol/L Potassium 4.1 (3.4-5.1) mMol/L Chloride 103 (98-107) mMol/L Carbon Dioxide < 10.0 L* (20.0-31.0) mMol/L Anion Gap 22 H (7-16) BUN 12 (9-23) mg/dL Creatinine 1.3 (0.6-1.3) mg/dL Estim Creat Clear Calc 51.4 L (>60) mL/min eGFR 58 L (60 - ) See Note BUN/Creatinine Ratio 9 L (12-20) Ratio Glucose 344 H (74-106) mg/dL Estimated Ave Glu mg/dL 286 H (80-131) mg/dL Hemoglobin A1c 11.6 H (4.8-6.0) % Hgb Calculated Osmolality 283 (275-295) Lactic Acid 3.4 H (0.4-2.0) mMol/L Calcium 9.8 (8.3-10.6) mg/dL Corrected Calcium 9.8 (8.5-10.1) mg/dL Magnesium 2.2 (1.6-2.6) mg/dL Total Bilirubin 0.4 (0.3-1.2) mg/dL AST 69 H (0-34) U/L ALT 43 (10-49) U/L Alkaline Phosphatase 129 H (46-116) U/L Total Protein 9.3 H (5.7-8.2) gm/dL Albumin 5.6 H (3.5-5.0) gm/dL Globulin 3.7 H (2.3-3.5) gm/dL Albumin/Globulin Ratio 1.5 (1.2-2.2) Lipase 43 (12-53) U/L Beta-Hydroxybutyrate/Acetoacetate 6.0 H (<0.6) mmol/L HCG, Qual Negative Ur Collection Type Clean Catch Urine Color Colorless A (Lt Yel-Yel) Urine Clarity Clear (Clear/Hazy) Urine pH 5.5 (5.0-7.0) Ur Specific [place] 1.031 (1.001-1.035) Urine Protein 1+ A (Neg - Trace) Urine Glucose (UA) 4+ A (Negative) Urine Ketones 4+ A (Negative) Urine Blood 2+ A (Negative) Urine Nitrite Negative (Negative) Urine Bilirubin Negative (Negative) Urine Urobilinogen (Auto) Negative (0.0-1.0) mg/dL Ur Leukocyte Esterase Negative (Negative) Urine RBC 30 H (0-3) /hpf Urine WBC 3 (0-5) /hpf Ur Squamous Epith Cells 1 (0-5) /hpf Urine Bacteria Rare (None) Critical Care Time Critical Care Time Critical Care Time: Yes Total Critical Care Time (min.): 60 Attestation: The high probability of sudden, clinically significant deterioration in the patient?s condition required the highest level of my preparedness to intervene urgently. The services I provided to this patient were to treat and/or prevent clinically significant deterioration. Services included the following: chart data review, reviewing nursing notes and/or old charts, documentation time, science consultant collaboration regarding findings and treatment options, medication orders and management, direct patient care, vital sign assessments and ordering, interpreting and reviewing diagnostic studies and lab tests. Aggregate critical care time includes only time during which I was engaged in work directly related to the patient?s care, as described above, whether at bedside or elsewhere in the Emergency Department. It did not include time spent performing other reported procedures or the services of residents, students, nurses or physician assistants. Discharge Plan Plan Patient Disposition: Admit Acute Care w/in Hospital Prescriptions/Referrals Prescriptions/Med Rec: No Action enoxaparin 60 mg/0.6 mL syringe 60 mg subcut BID insulin lispro [Admelog SoloStar U-100 Insulin] 100 unit/mL Insulin Pen 20 unit SUBCUT TIDWMEAL aspirin 81 mg Tablet 81 mg PO QDAY prenat.vits,perez,[id number] Tablet 1 tab PO QDAY Lantus Solostar U-100 Insulin 100 unit/mL (3 mL) insulin pen 15 unit subcut QAM 30 Days Qty: 4.5 2RF Referrals: Temporary Provider,ED [Physician] - In 1 week Problem List Clinical Impression: DKA (diabetic ketoacidosis) Patient/Caregiver Discharge Instructions Print Language: French Stand Alone Forms: [employer] Award Info., Patient Portal Info Letter
--- NOTE | 2024-09-25 00:56 | XR_ITS ---
Examination: AP chest single view Technique one AP portable upright chest single view Exam date and time: September 25, 2024 0104 hrs. Comparison May 06, 2021 Indications: Diagnosis diabetic ketoacidosis Findings: Normal heart size Lungs are clear. The osseous structures are intact Impression: No active disease
[2024-09-25] MEDS: SODIUM CHLORIDE 0.9% 1000 ML 1,000 ML 999 ML IV ×2 (01:05)
[2024-09-25 01:07] LABS: Base Excess, Venous -19 (-3-3); Lactate (Lactic Acid) 3.4 mMol/L (0.4-2.0); O2 Saturation, Venous 48 % (96-97); PCO2, Venous 33 mmHg (36-56); PO2, Venous 32 mmHg (15-58); pH, Venous 7.07 (7.33-7.66)
[2024-09-25 01:08] LABS: Basophils % (Auto) 0 % (0-2.5); Eosinophils % (Auto) 0 % (0-10); Hematocrit 42.7 % (36.0-46.0); Hemoglobin 12.4 g/dL (12.0-16.0); Immature Granulocytes % (Auto) 0 % (0-0); Immature Granulocytes Auto 0.06 Thou/mm3 (0.00-0.00); Lymphocytes # (Auto) 1.2 Thou/mm3 (1.0-4.8); Lymphocytes % (Auto) 8 % (10-50); Mean Corpuscular Hemoglobin 23.9 pg (25.0-35.0); Mean Corpuscular Volume 82 fL (80-100); Monocytes # (Auto) 0.6 Thou/mm3 (0.0-0.8); Monocytes % (Auto) 4 % (0-12); Neutrophils # (Auto) 13.6 Thou/mm3 (1.8-7.7); Neutrophils % (Auto) 88 % (37-80); Nucleated Red Blood Cell % 0 /100 WBC (0); Platelet Count 609 Thou/mm3 (140-440); RDW Standard Deviation 54.7 fL (36.4-46.3); Red Blood Count 5.19 Miln/mm3 (4.00-5.20); White Blood Count 15.4 Thou/mm3 (3.6-11.0)
[2024-09-25 01:32] LABS: Glucose Estimated Average 286 mg/dL (80-131); Hemoglobin A1C 11.6 % Hgb (4.8-6.0)
[2024-09-25 01:39] LABS: HCG,Qualitative Serum Negative
[2024-09-25 02:07] LABS: Alanine Aminotransferase 43 U/L (10-49); Albumin, Serum 5.6 gm/dL (3.5-5.0); Albumin/Globulin Ratio 1.5 (1.2-2.2); Alkaline Phosphatase 129 U/L (46-116); Anion Gap 22 (7-16); Aspartate Amino Transferase 69 U/L (0-34); BUN/Creatinine Ratio 9 Ratio (12-20); Bilirubin,Total 0.4 mg/dL (0.3-1.2); Blood Urea Nitrogen 12 mg/dL (9-23); Calcium 9.8 mg/dL (8.3-10.6); Calcium (Corrected) 9.8 mg/dL (8.5-10.1); Chloride 103 mMol/L (98-107); Creatinine (Component) 1.3 mg/dL (0.6-1.3); Estimated Creatinine Clearance 51.4 mL/min (>60); Globulin 3.7 gm/dL (2.3-3.5); Glucose 344 mg/dL (74-106); Lipase 43 U/L (12-53); Magnesium 2.2 mg/dL (1.6-2.6); Osmolality,Calculated 283 (275-295); Potassium 4.1 mMol/L (3.4-5.1); Sodium 135 mMol/L (136-145); Total Protein 9.3 gm/dL (5.7-8.2); eGFR 58 See Note
[2024-09-25 02:11] LABS: Carbon Dioxide < 10.0 mMol/L (20.0-31.0)
[2024-09-25 02:18] LABS: Collection Type, Urine Clean Catch
[2024-09-25 02:32] LABS: Bacteria,Urine Rare; Bilirubin,Urine Negative (Negative); Blood,Urine 2+ (Negative); Clarity,Urine Clear (Clear/Hazy); Color,Urine Colorless (Lt Yel-Yel); Glucose, Urine 4+ (Negative); Ketones,Urine 4+ (Negative); Leukocyte Esterase,Urine Negative (Negative); Nitrite,Urine Negative (Negative); PH,Urine 5.5 (5.0-7.0); Protein,Urine 1+ (Neg - Trace); RBC,Urine 30 /hpf (0-3); Specific Gravity,Urine 1.031 (1.001-1.035); Squamous Epithelial Cell,Urine 1 /hpf (0-5); Urobilinogen,Urine Negative mg/dL (0.0-1.0); WBC,Urine 3 /hpf (0-5)
[2024-09-25] MEDS: METOCLOPRAMIDE INJ 5 MG/ML VIAL 2 ML IVP (02:44)
[2024-09-25] MEDS: DiphenhydrAMINE INJ 50 MG/ML VIAL 12.5 MG IVP (02:44)
[2024-09-25] MEDS: SODIUM CHLORIDE 0.9% 1000 ML 1,000 ML 200 ML IV (02:44)
[2024-09-25] MEDS: POTASSIUM CHL 10 mEq IVPB 10 MEQ/100 ML BAG 100 MEQ IV (02:45)
[2024-09-25] MEDS: INSULIN REG 100 UNITS/100 ML 100 UNIT/100 ML BAG 5.08 UNIT IV ×2 (02:56→04:12)
--- NOTE | 2024-09-25 03:22 | ESHP_ITS ---
Documentation for date of: 09/25/24 HPI History of Present Illness Chief complaint: DKA History of present illness: Is a 29-year-old female with past medical history of type 1 diabetes and history of DVT secondary to in 2016. Patient presented to the emergency department due to nausea and vomiting for the past 48 hours. Patient stated that due to holidays she was not very compliant with her insulin pump and forgot to refill it. The insulin pump works fine, patient also has a Dexcom CGM. This is patient's fourth episode of DKA. Last episode of DKA was 2021. Off note patient is currently on Xarelto 20 mg daily due to a DVT in her lower extremity when she had her in 2016, and was off of it for several years however this August 2024 patient was complaining of lower extremity edema and pain and found to have another DVT and was restarted on Xarelto. Patient currently complains of nausea. No allergies. Patient has had 3 C-sections. Review of Systems Review of Systems Systems Reviewed: All systems reviewed, normal except as documented Exam Vital Signs Temp Pulse Resp BP Pulse Ox O2 Del Method 98.6 F 113 H 17 98/71 100 Room Air 09/25/24 00:27 09/25/24 02:30 09/25/24 02:30 09/25/24 02:30 09/25/24 02:30 09/25/24 00:27 Narrative Exam Constitutional: AOx3, able to speak full sentences HEENT: NC/AT, PERRLA, oral mucosa moist, neck supple CVS: RRR, S1-S2 present, no murmurs RESP: CTAB GI: non distended, non tender to palpation, NBS MSK: full ROM, no peripheral edema, peripheral pulses present Skin: warm and dry, no rashes Neuro: rd scientist II-XII grossly intact. Sensation grossly intact. Results: Labs 09/25/24 00:52 09/25/24 03:45 Labs: Short CBC 09/25/24 Range/Units 00:52 WBC 15.4 H (3.6-11.0) Thou/mm3 Hgb 12.4 (12.0-16.0) g/dL Hct 42.7 (36.0-46.0) % Plt Count 609 H D (140-440) Thou/mm3 BMP 09/25/24 00:52 Sodium 135 L Potassium 4.1 Chloride 103 Carbon Dioxide < 10.0 L* BUN 12 Creatinine 1.3 Glucose 344 H Calcium 9.8 Liver Function 09/25/24 Range/Units 00:52 Total Bilirubin 0.4 (0.3-1.2) mg/dL AST 69 H (0-34) U/L ALT 43 (10-49) U/L Alkaline Phosphatase 129 H (46-116) U/L Albumin 5.6 H (3.5-5.0) gm/dL Urine 09/25/24 Range/Units 02:14 Urine Color Colorless A (Lt Yel-Yel) Urine Clarity Clear (Clear/Hazy) Urine pH 5.5 (5.0-7.0) Ur Specific [place] 1.031 (1.001-1.035) Urine Protein 1+ A (Neg - Trace) Urine Glucose (UA) 4+ A (Negative) ABG Interpretation ABG results: 09/25/24 00:52 VBG pH 7.07 L VBG pCO2 33 L VBG pO2 32 VBG Base Excess -19 L Quality Measures Quality Measures none Medications Home Medications and Allergies Home Medications ?Medication ?Instructions ?Recorded ?Confirmed ?Type aspirin 81 mg tablet 81 mg PO QDAY 01/04/22 01/04/22 History enoxaparin 60 mg/0.6 mL 60 mg subcut BID 01/04/22 01/04/22 History subcutaneous syringe insulin lispro 100 unit/mL 20 unit subcut TIDWMEAL 01/04/22 01/04/22 History subcutaneous pen (Admelog SoloStar U-100 Insulin lispro) prenat.vits,perez,jli-[id number]-bgfds 1 tab PO QDAY 01/04/22 01/04/22 History Allergies Allergy/AdvReac Type Severity Reaction Status Date / Time No Known Allergies Allergy Verified 09/03/24 16:32 Visit Medications Dextrose (Dextrose 50%-Water Inj 50 Ml Syringe) 25 ml IV [id number] PRN PRN Reason: Blood Sugar - Low Enoxaparin Sodium (Enoxaparin Sod Inj 40 Mg/0.4 Ml Syringe) 40 mg SC QDAY [facility] Stop: 10/09/24 08:59 Sodium Chloride (Ns) 1,000 mls @ 200 mls/hr IV .Q5H CATY Stop: 10/25/24 02:15 Last Admin: 09/25/24 02:44 Dose: 200 mls/hr Insulin Human Regular (Myxredlin) 100 unit in 100 mls @ 5.08 mls/hr IV .[id number] PRN; Protocol PRN Reason: PER PROTOCOL Stop: 10/25/24 02:26 Last Admin: 09/25/24 02:56 Dose: 0.1 unit/kg/hr, 5.08 mls/hr Potassium Chloride (Kcl Ivpb) 10 meq in 100 mls @ 100 mls/hr IV .Q1H PRN PRN Reason: IF POTASSIUM LESS THAN 3.3 Stop: 10/25/24 03:15 Magnesium Sulfate (Magnesium Sulfate Ivpb) 2 gm in 50 mls @ 25 mls/hr IV .Q2H PRN PRN Reason: PER DKA PROTOCOL Stop: 10/25/24 03:15 Dextrose/Lactated Ringer's (D5-Lr) 1,000 mls @ 250 mls/hr IV .Q4H PRN PRN Reason: PER PROTOCOL Stop: 10/25/24 03:15 Lactated Ringer's (Lactated Ringers) 1,000 mls @ 250 mls/hr IV .Q4H PRN PRN Reason: PER PROTOCOL Stop: 09/26/24 03:15 Potassium Chloride 20 meq/ (Lactated Ringer's) 1,010 mls @ 250 mls/hr IV .Q4H3M PRN PRN Reason: K LEVEL 3.3 TO 5.3mM/L Stop: 10/25/24 03:15 Potassium Chloride 40 meq/ (Lactated Ringer's) 1,020 mls @ 250 mls/hr IV .Q4H5M PRN PRN Reason: K LEVEL < 3.3 mM/L Stop: 10/25/24 03:15 Potassium Chloride 40 meq/ (Dextrose/Lactated Ringer's) 1,020 mls @ 250 mls/hr IV .Q4H5M PRN PRN Reason: K LEVEL < 3.3mM/L Stop: 10/25/24 03:15 Potassium Cl/Dextrose/Lact Ringer's (Kcl 20 Meq/L In D5-Lr) 20 meq in 1,000 mls @ 250 mls/hr IV .Q4H PRN PRN Reason: K LEVEL 3.3 TO 5.3 mM/L Stop: 10/25/24 03:15 Potassium Chloride (Kcl Ivpb) 10 meq in 100 mls @ 50 mls/hr IV PRN PRN PRN Reason: K LEVEL 3.3 to 5.3 & BG > 200 Stop: 10/25/24 03:15 Potassium Phosphate (Pot Phos 15 Mmol In Ns 250 Ml) 15 mmol in 250 mls @ 62.5 mls/hr IV PRN PRN PRN Reason: Phosphate <= 1mg/dL Stop: 10/25/24 03:15 Sodium Phosphate 15 mmol/ (Sodium Chloride) 255 mls @ 62.5 mls/hr IV .Q4H5M PRN PRN Reason: Phosphate <= 1mg/dL and K> than 5.3 Stop: 10/25/24 03:15 Ondansetron HCl (Ondansetron Inj 2 Mg/Ml Inj 2 Ml) 4 mg IV Q6HR PRN; Protocol PRN Reason: NAUSEA OR VOMITING Stop: 10/25/24 03:20 Pantoprazole Sodium (Pantoprazole Inj 40 Mg Vial) 40 mg IVP QDAY CATY Stop: 10/25/24 08:59 Sodium Bicarbonate (Sodium Bicarb Inj 8.4% Syr 50 Ml Syringe) 50 ml IV PRN PRN PRN Reason: For ph <= to 7.0 Stop: 10/25/24 03:15 Discontinued Medications Diphenhydramine HCl (Diphenhydramine Inj 50 Mg/Ml Vial) 12.5 mg IVP X1 ONE Stop: 09/25/24 02:20 Last Admin: 09/25/24 02:44 Dose: 12.5 mg Sodium Chloride (Ns) 1,000 mls @ 999 mls/hr IV .Q1H1M ONE Stop: 09/25/24 01:56 Last Infusion: 09/25/24 01:51 Dose: Infused Sodium Chloride (Ns) 1,000 mls @ 999 mls/hr IV .Q1H1M ONE Stop: 09/25/24 01:57 Last Infusion: 09/25/24 01:52 Dose: Infused Insulin Human Regular (Myxredlin) 100 unit in 100 mls @ 5.897 mls/hr IV .[id number] PRN; Protocol PRN Reason: PER PROTOCOL Stop: 10/25/24 02:14 Potassium Chloride (Kcl Ivpb) 10 meq in 100 mls @ 100 mls/hr IV X1 ONE Stop: 09/25/24 03:14 Last Admin: 09/25/24 02:45 Dose: 100 mls/hr Metoclopramide HCl (Metoclopramide Inj 5 Mg/Ml Vial 2 Ml) 5 mg IVP X1 ONE; Protocol Stop: 09/25/24 02:20 Last Admin: 09/25/24 02:44 Dose: 5 mg Ondansetron HCl (Ondansetron Odt 4 Mg Tabrap) 4 mg PO X1 ONE; Protocol Stop: 09/25/24 00:32 Last Admin: 09/25/24 00:36 Dose: 4 mg Ondansetron HCl (Ondansetron Odt 4 Mg Tabrap) 4 mg PO X1 ONE; Protocol Stop: 09/25/24 00:36 Last Admin: 09/25/24 00:36 Dose: Not Given Assessment & Plan Plan Assessment and plan: 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 until able to tolerate p.o. intake -Zofran as needed Renal: #High anion gap metabolic acidosis #CLAUDETTE Secondary to DKA Rising creatinine baseline 0.7 on admission 1.3 VBG showed 7.0 Bicarb less than 10, anion gap 22 Plan: -IVF fluids -monitor UOP Endo: #DKA #Type 1 DM 2/2 to noncompliance A1c 11.4% () BHB was elevated at 6.0 on admission Plan: -DKA protocol Heme: #Leukocytosis #Thrombocytosis #Hx of DVT Etiology likely reactive d/t DKA Patient had history of DVT lower extremity back in 2016 secondary to and had another episode of DVT August 2024 Plan: -f/u CBC -cont xeralto PO 20mg qd ID: stable Skin/MSK: stable ICU Health maintenance: Mechanical ventilation: none Sedation: none FEN: NPO DVT ppx: xeralto GI ppx: protonix Posadas: none IV lines: 4 IVs Central line: none Arterial line: none Code status: FULL code Dispo: admit to ICU d/t DKA - Patient's care was discussed with my attending physician, Dr. Reji Oneal MD Internal Medicine PGY-3 Attending Provider Attestation/Addendum I discussed with and supervised the resident physician who took care of this patient. I agree with the assessment and plan as above. She is a 29-year-old female evaluated in ER bed 8. The patient has insulin dependent diabetes mellitus on insulin pump. Apparently noncompliant with her treatment. Patient presented with nausea and vomiting found to be in DKA. Patient was evaluated by ICU housestaff. She will be admitted to the ICU for treatment of DKA.
[2024-09-25] MEDS: DEXTROSE 50%-WATER INJ 50 ML SYRINGE IV (03:43)
[2024-09-25 04:03] LABS: Reflex Lactate? Y
[2024-09-25 04:06] LABS: Glucose Estimated Average 280 mg/dL (80-131); Hemoglobin A1C 11.4 % Hgb (4.8-6.0)
[2024-09-25] MEDS: DEXTROSE 5%-LACTATED RINGERS 1,000 ML 250 ML IV (04:07)
[2024-09-25 04:21] LABS: Albumin, Serum 4.2 gm/dL (3.5-5.0); Anion Gap 13 (7-16); BUN/Creatinine Ratio 14 Ratio (12-20); Blood Urea Nitrogen 11 mg/dL (9-23); Calcium 7.4 mg/dL (8.3-10.6); Calcium (Corrected) 7.4 mg/dL (8.5-10.1); Chloride 113 mMol/L (98-107); Creatinine (Component) 0.8 mg/dL (0.6-1.3); Estimated Creatinine Clearance 83.5 mL/min (>60); Glucose 109 mg/dL (74-106); Osmolality,Calculated 277 (275-295); Potassium 4.3 mMol/L (3.4-5.1); Sodium 139 mMol/L (136-145); eGFR > 60 See Note
[2024-09-25 04:23] LABS: Carbon Dioxide 13.2 mMol/L (20.0-31.0)
[2024-09-25 04:38] LABS: Lactic Acid, 3 HR 0.9 mMol/L (0.4-2.0)
[2024-09-25 08:10] LABS: Lactate (Lactic Acid) 0.5 mMol/L (0.4-2.0)
--- NOTE | 2024-09-25 08:32 | PC.CC ---
Pt Niki Nuñez is a 29 yr old female admitted to hospitalist services for DKA. ASW attempted to me meet with pt at bedside to complete initial assessment. At time of encounter pt is noted to be asleep, and hx provided by pts Alejandra Nuñez [phone]. Pts able to confirm demographic information. Pt is from [place] [address], where she lives with her spouse. Pts is designated as surrogate DM. At baseline pt is independent with ambulation and in completing her ADLs. Pt is diabetic (type 1) on insulin. Pt is not on dialysis. Pt does not require supplemental O2. Pt is followed by Alana Riddle for primary care. At time of D/c pt will return home, with providing transport.
[2024-09-25 08:43] LABS: Albumin, Serum 3.7 gm/dL (3.5-5.0); Anion Gap 12 (7-16); BUN/Creatinine Ratio 11 Ratio (12-20); Blood Urea Nitrogen 9 mg/dL (9-23); Calcium 7.5 mg/dL (8.3-10.6); Calcium (Corrected) 7.7 mg/dL (8.5-10.1); Carbon Dioxide 15.2 mMol/L (20.0-31.0); Chloride 112 mMol/L (98-107); Creatinine (Component) 0.8 mg/dL (0.6-1.3); Estimated Creatinine Clearance 83.5 mL/min (>60); Glucose 165 mg/dL (74-106); Magnesium 1.8 mg/dL (1.6-2.6); Osmolality,Calculated 280 (275-295); Phosphorous 1.8 mg/dL (2.4-5.1); Potassium 3.5 mMol/L (3.4-5.1); Sodium 139 mMol/L (136-145); eGFR > 60 See Note
[2024-09-25] MEDS: PANTOPRAZOLE INJ 40 MG VIAL IVP (09:00)
[2024-09-25] MEDS: KCL 20 mEq/L in D5-LR 20 MEQ/1,000 ML BAG 250 MEQ IV ×2 (09:32→13:39)
[2024-09-25] MEDS: Magnesium Sulfate 2 GM Ivpb 2 GM/50 ML BAG IV ×2 (10:33→12:21)
[2024-09-25] MEDS: CALCIUM CARBONATE 600 MG TABLET 1200 MG PO (10:37)
[2024-09-25] MEDS: POT PHOS 15 mMol in NS 250 ML 15 MMOL/250 ML BAG 62.5 MMOL IV (10:41)
[2024-09-25 11:43] LABS: Lactate (Lactic Acid) 0.9 mMol/L (0.4-2.0)
[2024-09-25 12:11] LABS: Albumin, Serum 3.5 gm/dL (3.5-5.0); Anion Gap 9 (7-16); BUN/Creatinine Ratio 10 Ratio (12-20); Blood Urea Nitrogen 8 mg/dL (9-23); Calcium 7.5 mg/dL (8.3-10.6); Calcium (Corrected) 7.9 mg/dL (8.5-10.1); Carbon Dioxide 19.2 mMol/L (20.0-31.0); Chloride 112 mMol/L (98-107); Creatinine (Component) 0.8 mg/dL (0.6-1.3); Estimated Creatinine Clearance 83.5 mL/min (>60); Glucose 141 mg/dL (74-106); Magnesium 2.2 mg/dL (1.6-2.6); Osmolality,Calculated 279 (275-295); Phosphorous 1.7 mg/dL (2.4-5.1); Potassium 3.6 mMol/L (3.4-5.1); Sodium 140 mMol/L (136-145); eGFR > 60 See Note
[2024-09-25] MEDS: INSULIN GLARGINE (Lantus) 5 UNIT/0.05 ML (PER 5 UNITS) 20 UNIT SC (12:45)
--- NOTE | 2024-09-25 15:11 | PD.RESEVENT ---
Documentation for date of: 09/25/24 Event Note Event Note: Patient evaluated in the emergency department, states she was diagnosed with type 1 diabetes in 2018 this was her fourth round of DKA which was due to noncompliance with her insulin pump at home over the holidays. Her nausea and vomiting have improved as well as her abdominal pain. Anion gap closed this morning with fluids and insulin, and now insulin drip weaning off transition to subcutaneous Lantus with p.o. diet as tolerated. Electrolytes repleted and patient remained stable. Her CLAUDETTE resolved. HbA1c is reflective of poorly controlled diabetes, patient encouraged to follow-up with her outpatient diabetes management upon discharge Patient seen and evaluated with Dr Christopher
[2024-09-25 15:19] LABS: Lactate (Lactic Acid) 1.1 mMol/L (0.4-2.0)
[2024-09-25 15:42] LABS: Albumin, Serum 3.6 gm/dL (3.5-5.0); Anion Gap 8 (7-16); BUN/Creatinine Ratio 9 Ratio (12-20); Blood Urea Nitrogen 7 mg/dL (9-23); Calcium 7.7 mg/dL (8.3-10.6); Carbon Dioxide 20.2 mMol/L (20.0-31.0); Chloride 111 mMol/L (98-107); Creatinine (Component) 0.8 mg/dL (0.6-1.3); Estimated Creatinine Clearance 79.7 mL/min (>60); Glucose 185 mg/dL (74-106); Magnesium 2.7 mg/dL (1.6-2.6); Osmolality,Calculated 280 (275-295); Phosphorous 1.6 mg/dL (2.4-5.1); Sodium 139 mMol/L (136-145); eGFR > 60 See Note
--- NOTE | 2024-09-25 17:06 | PC.NURSE ---
Pt requesting to leave AMA, Pt made aware that I will call the admitting doctor so they can come and talk to her. Pt agreed to wait to talk to the admitting doctor.
--- NOTE | 2024-09-25 17:51 | PD.RESDS ---
Planned Discharge Date 09/26/2024 DS: Providers Provider Date of admission: 09/25/24 03:17 Primary care physician: WILMER Pool Admitting Provider: Marvin Mendoza MD Attending Provider on Admission: Marvin Mendoza MD Consults: 09/25/24 03:18 Referral Registered Dietitian Routine Comment: Attending Provider on DC: Daryl Christopher MD Discharging Provider: Daryl Lewis DO DS: Diagnosis Discharge Diagnosis (1) DKA (diabetic ketoacidosis): Status: Acute Problem List Completed Was Problem List Reviewed/Reconciled?: Yes Hospital Course Hospital Course Hospital course: Is a 29-year-old female with past medical history of type 1 diabetes and history of DVT secondary to in 2016. Patient presented to the emergency department due to nausea and vomiting for the past 48 hours. Patient stated that due to holidays she was not very compliant with her insulin pump and forgot to refill it. The insulin pump works fine, patient also has a Dexcom CGM. This is patient's fourth episode of DKA. Last episode of DKA was 2021. Off note patient is currently on Xarelto 20 mg daily due to a DVT in her lower extremity when she had her in 2016, and was off of it for several years however this August 2024 patient was complaining of lower extremity edema and pain and found to have another DVT and was restarted on Xarelto. Patient currently complains of nausea. No allergies. Patient has had 3 C-sections. Patient was initiated on insulin drip while in the emergency department, her anion gap quickly closed and her symptoms began to improve. She was successfully transitioned to subcutaneous insulin and tolerated p.o. intake. Her metabolic derangements were addressed and improving. Patient was encouraged to stay in the hospital overnight for continued monitoring however she ultimately decided to leave AGAINST MEDICAL ADVICE after displaying clear understanding of the risks of doing so. Patient was given strict return precautions and encouraged to follow-up with her outpatient diabetic management appropriately. Patient stated she has insulin to fill her pump at home as pharmacy could not do so here. Status at Discharge Functional status at discharge: independent ambulation Overall status at discharge: patient is back to baseline Time Spent with Patient Time attestation: Total time spent providing and/or coordinating discharge services: Time spent: Greater than 30 minutes Exam Vital Signs Temp Pulse Resp BP Pulse Ox O2 Del Method 98.4 F 101 H 16 114/69 100 Room Air 09/25/24 14:47 09/25/24 15:00 09/25/24 14:47 09/25/24 14:47 09/25/24 14:47 09/25/24 14:47 Constitutional Constitutional: no acute distress Routine HEENT Exam Head: Present normocephalic and atraumatic Eye: Present EOMI Routine Respiratory Exam Respiratory: Present chest non-tender, lungs clear, normal breath sounds and no resp distress Routine Cardiovascular Exam Cardiovascular: Present RRR Routine Abdominal Exam Abdominal: Present soft and normoactive bowel sounds Routine Neurological Exam Neurological: Present alert, oriented X3, CN II-XII intact and moving all extremities Routine Psychiatric Exam Psychiatric: Present normal affect and normal thought process Discharge Plan Plan Patient Disposition: Left Against Medical Advice Disposition Comment: Patient left AGAINST MEDICAL ADVICE Patient condition on transfer: Stable Health Concerns: Uncontrolled diabetes Prescriptions/Referrals Prescriptions/Med Rec: No Action enoxaparin 60 mg/0.6 mL syringe 60 mg subcut BID insulin lispro [Admelog SoloStar U-100 Insulin] 100 unit/mL Insulin Pen 20 unit SUBCUT TIDWMEAL aspirin 81 mg Tablet 81 mg PO QDAY prenat.vits,perez,rne-[id number] Tablet 1 tab PO QDAY Lantus Solostar U-100 Insulin 100 unit/mL (3 mL) insulin pen 15 unit subcut QAM 30 Days Qty: 4.5 2RF Patient/Caregiver Discharge Instructions Discharge Activity: resume usual activities Print Language: Japanese Quality Discharge Quality Measures VTE prophylaxis MD Attestestation MD Attestation Patient seen and examined with above resident, Daryl Lewis DO. I agree with the findings, assessment, and plan of care as documented except for any differences below. Patient admitted with DKA secondary to noncompliance. Recent VTE on twice daily dosing of Lovenox appropriately with prior precipitant suspected due to . Patient had resolution of SIRS after adequate volume resuscitation and correction of underlying metabolic acidosis. No evidence of localized infection warranting ongoing antibiotics. Patient without any evidence of ischemic event as alternative etiology of precipitation of DKA. Patient transitioned to subcutaneous regimen this afternoon. Patient remained in the emergency department throughout the day and requested leaving this afternoon. Patient does have insulin at home and would like to use her own insulin pump instead of being maintained subcutaneous regimen which we do not have availability to do here at the hospital. Resident able explain risk and benefits of leaving AGAINST MEDICAL ADVICE. Patient decided to sign documentation prior to her leaving from the emergency department prior to a bed becoming available. She did receive long-acting insulin prior to discharge and instructed to load her pump for continued management of her diabetes along with follow-up with PCP. Total critical care time: I personally spent 30 minutes for review of physiologic parameters, directing plan of care throughout the day, and counseling patient at the bedside. This is exclusive of time spent teaching housestaff or performing any separate billable procedures. Patient oriented continued critical care services for noninfectious systemic inflammatory response syndrome and diabetic ketoacidosis without coma. Patient remains at risk for increased morbidity and mortality requiring close monitoring only available in the intensive care unit.
== END 2024-09-25 17:30 | disposition left against medical advice (07) | DRG 638 ==
LOC: SERX 09-25 03:30 → SERHOLD 09-25 07:33
PROVIDERS: Student in an Organized Health Care Education/Training Program; Admitting Provider Internal Medicine; Emergency Provider Emergency Medicine; PCP Nurse Practitioner Family; Visit Provider Internal Medicine
DX: E10.10 Type 1 diabetes mellitus with ketoacidosis without coma (principal); N17.9 Acute kidney failure, unspecified; D75.839 Thrombocytosis, unspecified; T38.3X6A Underdosing of insulin and oral hypoglycemic [antidiabetic] drugs, initial encounter; D72.829 Elevated white blood cell count, unspecified; Z91.148 Patient's other noncompliance with medication regimen for other reason; Z86.718 Personal history of other venous thrombosis and embolism; Z91.198 Patient's noncompliance with other medical treatment and regimen for other reason; Z79.01 Long term (current) use of anticoagulants; Z96.41 Presence of insulin pump (external) (internal); Z79.4 Long term (current) use of insulin; Z79.82 Long term (current) use of aspirin; Z53.29 Procedure and treatment not carried out because of patient's decision for other reasons
CPT/HCPCS: 36415; 71045; 80053; 80069; 81001; 82010; 82803; 83036; 83605; 83690; 83735; 84100; 84703; 85025; 87040; 93005; 96361; 96365; 96366; 96367; 96368; 96372; 99291; J1200; J1815; J2470; J2765; J3475; J3480; J7030; J7121; J7999; Q0162; A9270

== ENCOUNTER → 2024-10-01 | Outpatient (CLI) | payer BC, MEDICAID, SELFPAY ==
[2024-10-01 12:05] LABS: Basophils % (Auto) 0 % (0-2.5); Eosinophils # (Auto) 0.2 Thou/mm3 (0.0-0.5); Eosinophils % (Auto) 3 % (0-10); Hematocrit 33.1 % (36.0-46.0); Immature Granulocytes % (Auto) 0 % (0-0); Immature Granulocytes Auto 0.01 Thou/mm3 (0.00-0.00); Lymphocytes # (Auto) 1.8 Thou/mm3 (1.0-4.8); Lymphocytes % (Auto) 34 % (10-50); Mean Corpuscular HGB Conc 30.2 g/dl (31.0-37.0); Mean Corpuscular Hemoglobin 24.4 pg (25.0-35.0); Mean Corpuscular Volume 81 fL (80-100); Monocytes # (Auto) 0.4 Thou/mm3 (0.0-0.8); Monocytes % (Auto) 7 % (0-12); Neutrophils % (Auto) 56 % (37-80); Nucleated Red Blood Cell % 0 /100 WBC (0); Platelet Count 354 Thou/mm3 (140-440); RDW Standard Deviation 61.9 fL (36.4-46.3); White Blood Count 5.3 Thou/mm3 (3.6-11.0)
[2024-10-01 12:56] LABS: Alanine Aminotransferase 586 U/L (10-49); Albumin, Serum 4.1 gm/dL (3.5-5.0); Albumin/Globulin Ratio 1.6 (1.2-2.2); Alkaline Phosphatase 176 U/L (46-116); Anion Gap 9 (7-16); Aspartate Amino Transferase 90 U/L (0-34); BUN/Creatinine Ratio 21 Ratio (12-20); Beta HCG,Quantitative < 1 mIU/mL (<5.0); Bilirubin,Total 0.4 mg/dL (0.3-1.2); Blood Urea Nitrogen 15 mg/dL (9-23); Calcium 8.9 mg/dL (8.3-10.6); Calcium (Corrected) 8.9 mg/dL (8.5-10.1); Carbon Dioxide 28.2 mMol/L (20.0-31.0); Chloride 99 mMol/L (98-107); Creatinine (Component) 0.7 mg/dL (0.6-1.3); Globulin 2.5 gm/dL (2.3-3.5); Glucose 251 mg/dL (74-106); Osmolality,Calculated 280 (275-295); Potassium 5.1 mMol/L (3.4-5.1); Sodium 136 mMol/L (136-145); Total Protein 6.6 gm/dL (5.7-8.2); eGFR > 60 See Note
== END | disposition home or self-care (01) ==
PROVIDERS: PCP Nurse Practitioner Family; Referring Provider Nurse Practitioner Family; Visit Provider Nurse Practitioner Family
DX: D50.9 Iron deficiency anemia, unspecified (principal)
CPT/HCPCS: 36415; 80053; 84702; 85025

== ENCOUNTER → 2024-10-05 | Outpatient (CLI) | payer BC, MEDICAID, SELFPAY ==
[2024-10-05 09:24] LABS: Basophils % (Auto) 0 % (0-2.5); Eosinophils # (Auto) 0.2 Thou/mm3 (0.0-0.5); Eosinophils % (Auto) 4 % (0-10); Hematocrit 31.4 % (36.0-46.0); Hemoglobin 9.7 g/dL (12.0-16.0); Immature Granulocytes % (Auto) 0 % (0-0); Immature Granulocytes Auto 0.01 Thou/mm3 (0.00-0.00); Lymphocytes # (Auto) 1.8 Thou/mm3 (1.0-4.8); Lymphocytes % (Auto) 41 % (10-50); Mean Corpuscular HGB Conc 30.9 g/dl (31.0-37.0); Mean Corpuscular Hemoglobin 24.5 pg (25.0-35.0); Mean Corpuscular Volume 79 fL (80-100); Monocytes # (Auto) 0.3 Thou/mm3 (0.0-0.8); Monocytes % (Auto) 7 % (0-12); Neutrophils # (Auto) 2.1 Thou/mm3 (1.8-7.7); Neutrophils % (Auto) 48 % (37-80); Nucleated Red Blood Cell % 0 /100 WBC (0); Platelet Count 356 Thou/mm3 (140-440); RDW Standard Deviation 59.9 fL (36.4-46.3); Red Blood Count 3.96 Miln/mm3 (4.00-5.20); White Blood Count 4.3 Thou/mm3 (3.6-11.0)
[2024-10-05 09:54] LABS: Alanine Aminotransferase 229 U/L (10-49); Albumin, Serum 3.9 gm/dL (3.5-5.0); Albumin/Globulin Ratio 1.5 (1.2-2.2); Alkaline Phosphatase 134 U/L (46-116); Anion Gap 8 (7-16); Aspartate Amino Transferase 52 U/L (0-34); BUN/Creatinine Ratio 28 Ratio (12-20); Beta HCG,Quantitative < 1 mIU/mL (<5.0); Bilirubin,Total 0.5 mg/dL (0.3-1.2); Blood Urea Nitrogen 14 mg/dL (9-23); Calcium 8.7 mg/dL (8.3-10.6); Calcium (Corrected) 8.8 mg/dL (8.5-10.1); Carbon Dioxide 27.5 mMol/L (20.0-31.0); Chloride 103 mMol/L (98-107); Creatinine (Component) 0.5 mg/dL (0.6-1.3); Globulin 2.6 gm/dL (2.3-3.5); Glucose 219 mg/dL (74-106); Osmolality,Calculated 283 (275-295); Potassium 4.9 mMol/L (3.4-5.1); Sodium 138 mMol/L (136-145); Total Protein 6.5 gm/dL (5.7-8.2); eGFR > 60 See Note
[2024-10-05 10:27] LABS: Hepatitis A Antibody IgM Non Reactive (Non React); Hepatitis B Core Antibody IgM Non Reactive (Non React); Hepatitis B Surface Antigen Non Reactive (Non React); Hepatitis C Antibody Non Reactive (Non React)
== END | disposition home or self-care (01) ==
LOC: SCTO 08:45
PROVIDERS: PCP Family Medicine; Referring Provider Nurse Practitioner Family; Visit Provider Nurse Practitioner Family
DX: D50.9 Iron deficiency anemia, unspecified (principal); R74.01 Elevation of levels of liver transaminase levels
CPT/HCPCS: 36415; 80053; 80074; 84702; 85025

== ENCOUNTER → 2024-10-12 | Outpatient (CLI) | payer BC, MEDICAID, SELFPAY ==
--- NOTE | 2024-10-12 16:00 | XR_ITS ---
Examination: Abdomen sonogram, complete Date and time of exam: October 07, 2024 at 1608 hrs. Indications: Elevated liver function tests on laboratory examination performed one week ago. Technique: Multiple real-time grayscale transabdominal sonographic images of the abdomen have been obtained. Findings: Normal gallbladder Normal common bile duct 0.1 cm Pancreatic head 1.4 cm Aorta not enlarged Liver 18.3 cm fatty infiltration no focal liver lesions Normal hepatopedal portal venous oh Patent IVC Right kidney 13.7 x 5.3 x 6.1 cm cortex 1.7 cm Left kidney 13.7 x 4.9 x 6.6 cm cortex 1.6 cm Minimal hydronephrosis No splenomegaly Impression: Normal gallbladder Mild hepatomegaly fatty infiltration Minimal left hydronephrosis, clinical correlation advised, urinary tract infection with be included in the differential If ureteral calculus on the left is a clinical consideration, recommend CT scan abdomen pelvis without intravenous contrast follow-up
== END | disposition home or self-care (01) ==
LOC: CDIM 15:51
PROVIDERS: PCP Nurse Practitioner Family; Referring Provider Nurse Practitioner Family; Visit Provider Nurse Practitioner Family
DX: K76.0 Fatty (change of) liver, not elsewhere classified (principal); N13.2 Hydronephrosis with renal and ureteral calculous obstruction
CPT/HCPCS: 76700

== ENCOUNTER 2024-10-22 13:27 | Outpatient (RCR) | payer BC, MEDICAID, SELFPAY | END 2024-10-26 23:59 | disposition home or self-care (01) | LOC: SCTC 13:27 | PROVIDERS: PCP Nurse Practitioner Family; Referring Provider Nurse Practitioner Family; Visit Provider Internal Medicine Hematology & Oncology | DX: E61.1 Iron deficiency (principal); N92.0 Excessive and frequent menstruation with regular cycle; I82.402 Acute embolism and thrombosis of unspecified deep veins of left lower extremity; D68.59 Other primary thrombophilia; Z86.711 Personal history of pulmonary embolism; Z79.01 Long term (current) use of anticoagulants; Z91.148 Patient's other noncompliance with medication regimen for other reason; E10.9 Type 1 diabetes mellitus without complications; Z79.4 Long term (current) use of insulin | CPT/HCPCS: 96365; 96375; 99212; J2916; J2919; J3490; J7040; J7050; G0463 ==

== ENCOUNTER → 2024-10-22 | Outpatient (CLI) | payer BC, MEDICAID, SELFPAY ==
[2024-10-22 12:07] LABS: Basophils % (Auto) 0 % (0-2.5); Eosinophils # (Auto) 0.3 Thou/mm3 (0.0-0.5); Eosinophils % (Auto) 4 % (0-10); Hematocrit 31.8 % (36.0-46.0); Hemoglobin 9.6 g/dL (12.0-16.0); Immature Granulocytes % (Auto) 0 % (0-0); Immature Granulocytes Auto 0.02 Thou/mm3 (0.00-0.00); Lymphocytes # (Auto) 2.3 Thou/mm3 (1.0-4.8); Lymphocytes % (Auto) 33 % (10-50); Mean Corpuscular HGB Conc 30.2 g/dl (31.0-37.0); Mean Corpuscular Hemoglobin 23.8 pg (25.0-35.0); Mean Corpuscular Volume 79 fL (80-100); Monocytes # (Auto) 0.5 Thou/mm3 (0.0-0.8); Monocytes % (Auto) 8 % (0-12); Neutrophils # (Auto) 3.8 Thou/mm3 (1.8-7.7); Neutrophils % (Auto) 55 % (37-80); Nucleated Red Blood Cell % 0 /100 WBC (0); Platelet Count 453 Thou/mm3 (140-440); RDW Standard Deviation 56.4 fL (36.4-46.3); Red Blood Count 4.04 Miln/mm3 (4.00-5.20)
[2024-10-22 12:32] LABS: Alanine Aminotransferase 19 U/L (10-49); Albumin, Serum 4.3 gm/dL (3.5-5.0); Albumin/Globulin Ratio 1.7 (1.2-2.2); Alkaline Phosphatase 123 U/L (46-116); Anion Gap 8 (7-16); Aspartate Amino Transferase 18 U/L (0-34); BUN/Creatinine Ratio 23 Ratio (12-20); Bilirubin,Total 0.4 mg/dL (0.3-1.2); Blood Urea Nitrogen 14 mg/dL (9-23); Calcium 9.2 mg/dL (8.3-10.6); Calcium (Corrected) 9.2 mg/dL (8.5-10.1); Carbon Dioxide 28.5 mMol/L (20.0-31.0); Chloride 100 mMol/L (98-107); Creatinine (Component) 0.6 mg/dL (0.6-1.3); Globulin 2.6 gm/dL (2.3-3.5); Glucose 246 mg/dL (74-106); Osmolality,Calculated 280 (275-295); Potassium 4.7 mMol/L (3.4-5.1); Sodium 136 mMol/L (136-145); Total Protein 6.9 gm/dL (5.7-8.2); eGFR > 60 See Note
== END | disposition home or self-care (01) ==
LOC: SCTO 11:27
PROVIDERS: PCP Nurse Practitioner Family; Referring Provider Nurse Practitioner Family; Visit Provider Nurse Practitioner Family
DX: D50.9 Iron deficiency anemia, unspecified (principal)
CPT/HCPCS: 36415; 80053; 85025

== ENCOUNTER → 2024-10-26 | Outpatient (CLI) | payer BC, MEDICAID, SELFPAY ==
[2024-10-26 13:58] LABS: Basophils % (Auto) 0 % (0-2.5); Eosinophils # (Auto) 0.3 Thou/mm3 (0.0-0.5); Eosinophils % (Auto) 3 % (0-10); Hematocrit 34.3 % (36.0-46.0); Hemoglobin 10.2 g/dL (12.0-16.0); Immature Granulocytes % (Auto) 0 % (0-0); Immature Granulocytes Auto 0.04 Thou/mm3 (0.00-0.00); Lymphocytes # (Auto) 2.3 Thou/mm3 (1.0-4.8); Lymphocytes % (Auto) 24 % (10-50); Mean Corpuscular HGB Conc 29.7 g/dl (31.0-37.0); Mean Corpuscular Hemoglobin 23.4 pg (25.0-35.0); Mean Corpuscular Volume 79 fL (80-100); Monocytes # (Auto) 0.5 Thou/mm3 (0.0-0.8); Monocytes % (Auto) 6 % (0-12); Neutrophils # (Auto) 6.3 Thou/mm3 (1.8-7.7); Neutrophils % (Auto) 67 % (37-80); Nucleated Red Blood Cell % 0 /100 WBC (0); Platelet Count 534 Thou/mm3 (140-440); RDW Standard Deviation 56.4 fL (36.4-46.3); Red Blood Count 4.36 Miln/mm3 (4.00-5.20); White Blood Count 9.5 Thou/mm3 (3.6-11.0)
[2024-10-26 14:26] LABS: Alanine Aminotransferase 19 U/L (10-49); Albumin, Serum 4.4 gm/dL (3.5-5.0); Albumin/Globulin Ratio 1.3 (1.2-2.2); Alkaline Phosphatase 129 U/L (46-116); Anion Gap 10 (7-16); Aspartate Amino Transferase 20 U/L (0-34); BUN/Creatinine Ratio 20 Ratio (12-20); Bilirubin,Total 0.7 mg/dL (0.3-1.2); Blood Urea Nitrogen 16 mg/dL (9-23); Calcium 9.4 mg/dL (8.3-10.6); Calcium (Corrected) 9.4 mg/dL (8.5-10.1); Carbon Dioxide 26.3 mMol/L (20.0-31.0); Chloride 96 mMol/L (98-107); Creatinine (Component) 0.8 mg/dL (0.6-1.3); Globulin 3.3 gm/dL (2.3-3.5); Osmolality,Calculated 290 (275-295); Potassium 5.2 mMol/L (3.4-5.1); Sodium 132 mMol/L (136-145); Total Protein 7.7 gm/dL (5.7-8.2); eGFR > 60 See Note
[2024-10-26 14:28] LABS: Glucose 546 mg/dL (74-106)
[2024-10-26 14:33] LABS: Iron 48 mcg/dL (50-170)
[2024-10-26 15:42] LABS: Ferritin 40 ng/mL (7.3-270.7); Percent Iron Saturation 11 % (20-55); Total Iron Binding Capacity 416 mcg/dL (250-425); Unsaturated Iron Binding 368 (225-295)
[2024-10-26 16:04] LABS: Folate 23.99 ng/mL (>5.38); Vitamin B12 802 pg/mL (211-911)
== END | disposition home or self-care (01) ==
LOC: SCTO 12:33
PROVIDERS: PCP Nurse Practitioner Family; Referring Provider Nurse Practitioner Family; Visit Provider Nurse Practitioner Family
DX: D50.9 Iron deficiency anemia, unspecified (principal)
CPT/HCPCS: 36415; 80053; 82607; 82728; 82746; 83540; 83550; 85025

== ENCOUNTER → 2024-11-05 | Outpatient (CLI) | payer BC, MEDICAID, SELFPAY ==
[2024-11-05 13:19] LABS: Basophils % (Auto) 0 % (0-2.5); Eosinophils # (Auto) 0.2 Thou/mm3 (0.0-0.5); Eosinophils % (Auto) 4 % (0-10); Hematocrit 36.9 % (36.0-46.0); Immature Granulocytes % (Auto) 0 % (0-0); Immature Granulocytes Auto 0.01 Thou/mm3 (0.00-0.00); Lymphocytes # (Auto) 1.7 Thou/mm3 (1.0-4.8); Lymphocytes % (Auto) 34 % (10-50); Mean Corpuscular HGB Conc 29.8 g/dl (31.0-37.0); Mean Corpuscular Hemoglobin 23.4 pg (25.0-35.0); Mean Corpuscular Volume 79 fL (80-100); Monocytes # (Auto) 0.4 Thou/mm3 (0.0-0.8); Monocytes % (Auto) 8 % (0-12); Neutrophils # (Auto) 2.8 Thou/mm3 (1.8-7.7); Neutrophils % (Auto) 54 % (37-80); Nucleated Red Blood Cell % 0 /100 WBC (0); Platelet Count 460 Thou/mm3 (140-440); White Blood Count 5.2 Thou/mm3 (3.6-11.0)
[2024-11-05 13:31] LABS: Alanine Aminotransferase 13 U/L (10-49); Albumin, Serum 4.2 gm/dL (3.5-5.0); Albumin/Globulin Ratio 1.4 (1.2-2.2); Alkaline Phosphatase 123 U/L (46-116); Anion Gap 8 (7-16); Aspartate Amino Transferase 13 U/L (0-34); BUN/Creatinine Ratio 23 Ratio (12-20); Bilirubin,Total 0.5 mg/dL (0.3-1.2); Blood Urea Nitrogen 16 mg/dL (9-23); Calcium 9.1 mg/dL (8.3-10.6); Calcium (Corrected) 9.1 mg/dL (8.5-10.1); Carbon Dioxide 27.8 mMol/L (20.0-31.0); Chloride 101 mMol/L (98-107); Creatinine (Component) 0.7 mg/dL (0.6-1.3); Globulin 2.9 gm/dL (2.3-3.5); Glucose 313 mg/dL (74-106); Osmolality,Calculated 287 (275-295); Potassium 4.9 mMol/L (3.4-5.1); Sodium 137 mMol/L (136-145); Total Protein 7.1 gm/dL (5.7-8.2); eGFR > 60 See Note
== END | disposition home or self-care (01) ==
LOC: SCTO 11:38
PROVIDERS: PCP Nurse Practitioner Family; Referring Provider Nurse Practitioner Family; Visit Provider Nurse Practitioner Family
DX: D50.9 Iron deficiency anemia, unspecified (principal)
CPT/HCPCS: 36415; 80053; 85025

== ENCOUNTER → 2024-11-19 | Outpatient (CLI) | payer BC, SELFPAY ==
[2024-11-19 16:39] LABS: Basophils % (Auto) 0 % (0-2.5); Eosinophils # (Auto) 0.2 Thou/mm3 (0.0-0.5); Eosinophils % (Auto) 3 % (0-10); Hematocrit 37.2 % (36.0-46.0); Hemoglobin 11.5 g/dL (12.0-16.0); Immature Granulocytes % (Auto) 0 % (0-0); Immature Granulocytes Auto 0.01 Thou/mm3 (0.00-0.00); Lymphocytes # (Auto) 2.1 Thou/mm3 (1.0-4.8); Lymphocytes % (Auto) 37 % (10-50); Mean Corpuscular HGB Conc 30.9 g/dl (31.0-37.0); Mean Corpuscular Hemoglobin 24.3 pg (25.0-35.0); Mean Corpuscular Volume 79 fL (80-100); Monocytes # (Auto) 0.4 Thou/mm3 (0.0-0.8); Monocytes % (Auto) 7 % (0-12); Neutrophils # (Auto) 3.1 Thou/mm3 (1.8-7.7); Neutrophils % (Auto) 53 % (37-80); Nucleated Red Blood Cell % 0 /100 WBC (0); Platelet Count 438 Thou/mm3 (140-440); RDW Standard Deviation 57.2 fL (36.4-46.3); Red Blood Count 4.73 Miln/mm3 (4.00-5.20); White Blood Count 5.8 Thou/mm3 (3.6-11.0)
[2024-11-19 17:07] LABS: Alanine Aminotransferase 20 U/L (10-49); Albumin, Serum 4.4 gm/dL (3.5-5.0); Albumin/Globulin Ratio 1.4 (1.2-2.2); Alkaline Phosphatase 98 U/L (46-116); Anion Gap 9 (7-16); Aspartate Amino Transferase 26 U/L (0-34); BUN/Creatinine Ratio 23 Ratio (12-20); Bilirubin,Total 0.3 mg/dL (0.3-1.2); Blood Urea Nitrogen 14 mg/dL (9-23); Carbon Dioxide 30.3 mMol/L (20.0-31.0); Chloride 103 mMol/L (98-107); Creatinine (Component) 0.6 mg/dL (0.6-1.3); Globulin 3.1 gm/dL (2.3-3.5); Glucose 99 mg/dL (74-106); Osmolality,Calculated 283 (275-295); Sodium 142 mMol/L (136-145); Total Protein 7.5 gm/dL (5.7-8.2); eGFR > 60 See Note
[2024-11-19 17:11] LABS: Folate 16.46 ng/mL (>5.38); Vitamin B12 694 pg/mL (211-911)
[2024-11-19 17:34] LABS: Ferritin 17 ng/mL (7.3-270.7); Total Iron Binding Capacity 395 mcg/dL (250-425)
[2024-11-19 17:50] LABS: Iron 25 mcg/dL (50-170); Percent Iron Saturation 6 % (20-55); Unsaturated Iron Binding 370 (225-295)
== END | disposition home or self-care (01) ==
PROVIDERS: PCP Nurse Practitioner Family; Referring Provider Nurse Practitioner Family; Visit Provider Nurse Practitioner Family
DX: D50.9 Iron deficiency anemia, unspecified (principal)
CPT/HCPCS: 36415; 80053; 82607; 82728; 82746; 83540; 83550; 85025

== ENCOUNTER 2024-11-21 14:15 | Outpatient (RCR) | payer BC, MEDICAID, SELFPAY | END 2024-11-23 23:59 | disposition home or self-care (01) | LOC: SCTC 14:15 | PROVIDERS: PCP Nurse Practitioner Family; Referring Provider Nurse Practitioner Family; Visit Provider Nurse Practitioner Family | DX: D50.9 Iron deficiency anemia, unspecified (principal); N92.0 Excessive and frequent menstruation with regular cycle; Z86.718 Personal history of other venous thrombosis and embolism; Z86.711 Personal history of pulmonary embolism; Z79.01 Long term (current) use of anticoagulants; E11.9 Type 2 diabetes mellitus without complications; Z79.4 Long term (current) use of insulin | CPT/HCPCS: 96365; 96375; J2916; J3490; J7040; J7050 ==

== ENCOUNTER 2025-01-17 13:31 | Inpatient (IN) | payer BC, SELFPAY ==
[2025-01-17] VITALS (9 sets, daily range): BP systolic 102–136; BP diastolic 50–82; PULSE 118–135; RESP 16–100; TEMP 36.8–37.7; O2SAT 98–100; BMI 25.4
--- NOTE | 2025-01-17 13:33 | XR_ITS ---
Examination: AP chest single view Technique one AP portable upright chest single view Exam date and time: January 17, 2025 1400 hours INDICATIONS: Chest pain today. FINDINGS: Normal heart size Lungs are clear. The osseous structures are intact IMPRESSION: No active disease
[2025-01-17] MEDS: SODIUM CHLORIDE 0.9% 1000 ML 2,000 ML IV (13:53)
[2025-01-17] MEDS: INSULIN HUM REGULAR 1 UNIT/0.01 ML (PER UNIT) 12 UNIT SC (14:04)
[2025-01-17] MEDS: ONDANSETRON INJ 2 MG/ML INJ 2 ML 4 MG IV ×2 (14:06→22:34)
[2025-01-17 14:39] LABS: Collection Type, Urine Catheter
[2025-01-17 14:59] LABS: Bacteria,Urine Rare; Bilirubin,Urine Negative (Negative); Blood,Urine 3+ (Negative); Clarity,Urine Clear (Clear/Hazy); Color,Urine Colorless (Lt Yel-Yel); Culture Indicated,Urine Not Indicated; Glucose, Urine 4+ (Negative); Ketones,Urine 4+ (Negative); Leukocyte Esterase,Urine Negative (Negative); Nitrite,Urine Negative (Negative); PH,Urine 5.5 (5.0-7.0); Protein,Urine Trace (Neg - Trace); RBC,Urine 295 /hpf (0-3); Specific Gravity,Urine 1.029 (1.001-1.035); Squamous Epithelial Cell,Urine < 1 /hpf (0-5); Urobilinogen,Urine Negative mg/dL (0.0-1.0); WBC,Urine 3 /hpf (0-5)
[2025-01-17 15:04] LABS: HCG Qualitative,Urine Negative
--- NOTE | 2025-01-17 15:34 | PD.EDNV ---
Nausea/Vomit./Diarrhea-RME/HPI General Chief complaint: Nausea/Vomiting/Diarrhea Stated complaint: NAUSEA AND VOMITING Time Seen by Provider: 01/17/25 13:32 Arrival date/time: 01/17/25 13:31 RME / HPI RME / HPI Narrative: 29 year old female with history of heart murmur, T1DM diagnosed at 20 years of age, currently has an insulin pump, presents to the ED BIBA from home for evaluation of nausea and vomiting beginning this morning. Reportedly was recently sick with cold-like symptoms 1 week ago which she feels have improved. Patient denies missing any insulin doses secondary to use of an insulin pump. No other associated complaints reported. Per medics report, patient en route was given 4mg Zofran. Prehospital FSBS 536. Related Data Home Medications ?Medication ?Instructions ?Recorded ?Confirmed aspirin 81 mg tablet 81 mg PO QDAY 01/04/22 01/04/22 enoxaparin 60 mg/0.6 mL 60 mg subcut BID 01/04/22 01/04/22 subcutaneous syringe insulin lispro 100 unit/mL 20 unit subcut TIDWMEAL 01/04/22 01/04/22 subcutaneous pen (Admelog SoloStar U-100 Insulin lispro) prenat.vits,perez,ims-pvmh-oveze 1 tab PO QDAY 01/04/22 01/04/22 Previous Rx's ?Medication ?Instructions ?Recorded insulin glargine 100 unit/mL (3 15 unit (0.15 mL) subcut QAM 30 01/06/22 mL) subcutaneous pen (Lantus days #4.5 mL Solostar U-100 Insulin) Allergies Allergy/AdvReac Type Severity Reaction Status Date / Time No Known Allergies Allergy Verified 01/17/25 13:38 Review of Systems Review of Systems Narrative Review of Systems: Constitutional: DENIES; Fevers Eyes: DENIES; Loss of vision Head/Ear/Nose: DENIES; Loss of hearing Throat: DENIES; Dysphagia Cardiovascular: DENIES; Chest pain, dyspnea or syncope Respiratory: DENIES; Shortness of breath Gastrointestinal: SEE HPI +nausea/vomiting DENIES; Rectal bleeding or melena. Genitourinary: DENIES; Dysuria (painful or difficult urination) Musculoskeletal: DENIES; Arthralgia (pain in a joint),; Skin: DENIES; Rash Neurological: DENIES; Loss of function or movement Psychiatric: DENIES; recent major life stressor, emotional problem, illicit drug use or abuse Endocrinology: DENIES; Weight change Hematologic/Lymphatic: DENIES; Abnormal bruising Allergic/Immunologic: DENIES; Urticaria (hives) Past Medical History Past Medical History CARDIAC: Positive Cardiac Disorders and Deep Vein Thrombosis RESPIRATORY: Positive Pulmonary Embolism REPRODUCTIVE: Positive Previous Pregnancies ENDOCRINE: Positive Endocrine Disorders and Diabetes Mellitus Type 1 HEMATOLOGIC: Positive Blood Disorders and Clotting Problems OTHER HISTORY: Positive Hospitalization Family History FAMILY HISTORY: Positive Family Cancer (PT'S GRANDPA PROSTATE CANCER) Surgical History SURGICAL: Positive Section Social History SMOKING STATUS: Current every day smoker SECOND HAND EXPOSURE: No SUBSTANCE USE: does not use ED Exam Narrative Physical exam: Physical Exam: General: The vital signs were reviewed. Actively nauseated and vomiting tachycardic, the patient is non-toxic, in no apparent distress and appears healthy with a patent airway, no respiratory distress and has no apparent circulatory problems. Head & Scalp: Normocephalic, atraumatic. Face: Appears normal and is without lesions, deformity. Ears: Left external pinna appears normal. Right external pinna appears normal. Eyes: The sclera is anicteric. No obvious photophobia. The Left and Right Orbit/Lid/Conjunctiva appears normal without swelling, discoloration or injection. Nose: The nose is without deformity, discharge or tenderness; Throat: Appears normal. The mucous membranes are pink and moist without exudates, redness or mass seen. The tongue appears normal. Neck: The neck is supple and no apparent mass or adenopathy. Chest: The chest wall is normal in size and symmetry and has no chest wall tenderness or crepitus. The patient displays normal ventilator effort without retractions, accessory muscle use and has adequate air movement bilaterally with no wheezes and no rales. Cardiovascular: Tacky sinus 130 on the monitor on arrival regular rate and rhythm; No murmurs, rubs, or gallops; Gastrointestinal: The abdomen appears normal. No obvious hernias or mass. The abdomen is soft and benign, non-distended, with no pain, no guarding and no rebound tenderness. Bowel sounds are present and normal sounding. No CVA tenderness. Genitourinary: Back/Spine: Normal inspection Extremities/Musculoskeletal/lymphatic: The bilateral upper and lower extremities are warm. There is no evidence of arterial insufficiency. There is no evidence of venous insufficiency/edema. The patient spontaneously moves bilateral upper and lower extremities with no pain and no limitation of movement. There is no apparent, injury or trauma. Skin: The skin is warm, dry and intact. No rashes. No petechia. No purpura. No abnormal bruising. The color is appropriate with no cyanosis. Mental status/Psychiatric: Mental status is appropriate for age. The patient has no apparent delusions, visual hallucinations, no apparent audible hallucinations. The patient has no apparent suicidal thoughts/ideation and no apparent homicidal thoughts/ideation. Neurological: The patient is awake, alert, interactive, cordial, cooperative and is oriented to name and situation. The patient follows commands and answers historical question with no impairment. There is no visual disturbance apparent. The pupils are equal and reactive bilaterally with normal eye movements and no diplopia The bilateral upper and lower extremities have normal strength, normal range of motion and normal functioning. The gait, station and balance appear not tested due to acuity Course Quality Measures none Orders Category Date Time Status Admit to Inpatient Status Routine Admission 01/17/25 17:49 Active Patient Condition Routine Admission 01/17/25 17:49 Ordered Bathroom Privileges as Tolerated Routine Care 01/17/25 17:55 Ordered Bedside Blood Glucose Q1H Care 01/17/25 17:55 Active Bedside COVID-19 Antigen Test NOW Care 01/17/25 15:35 Active Bedside Influenza A&B Antigen Test NOW Care 01/17/25 15:35 Completed Steel Molder Q2HR Care 01/17/25 15:14 Active Steel Molder Q4H Care 01/17/25 17:55 Active DKA Protocol QSHIFT Care 01/17/25 17:55 Active Intake and Output Q1H Care 01/17/25 18:00 Ordered Intake and Output Q1H Care 01/17/25 19:00 Ordered Intake and Output Q1H Care 01/17/25 20:00 Ordered Intake and Output Q1H Care 01/17/25 21:00 Ordered Intake and Output Q1H Care 01/17/25 22:00 Ordered Intake and Output Q1H Care 01/17/25 23:00 Ordered NPO NOW Care 01/17/25 17:50 Active Notify provider NEEDED Care 01/17/25 17:49 Active Notify provider NEEDED Care 01/17/25 17:55 Active Referral Registered Dietitian Routine Cons 01/17/25 17:55 Active Diet NPO (NOW) Diet 01/17/25 17:50 Active XR chest 1V portable Stat Exams 01/17/25 13:33 Completed Beta Hydroxybutyrate DAILY Lab 01/19/25 09:00 Ordered Beta Hydroxybutyrate DAILY Lab 01/20/25 09:00 Ordered Beta Hydroxybutyrate DAILY Lab 01/21/25 09:00 Ordered Beta Hydroxybutyrate Stat Lab 01/17/25 15:05 Completed Blood Culture (Lab) Stat Lab 01/17/25 15:05 Received CBC AM DRAW Lab 01/18/25 05:00 Ordered CBC AM DRAW Lab 01/19/25 05:00 Ordered CBC AM DRAW Lab 01/20/25 05:00 Ordered CBC Stat Lab 01/17/25 15:05 Completed Comprehensive Metabolic Panel Stat Lab 01/17/25 15:05 Completed HCG Qualitative,Urine Stat Lab 01/17/25 10:20 Completed Lactate (Lactic Acid) Q4H Lab 01/17/25 22:00 Ordered Lactate (Lactic Acid) Q4H Lab 01/18/25 02:00 Ordered Lactate (Lactic Acid) Q4H Lab 01/18/25 06:00 Ordered Lactate (Lactic Acid) Q4H Lab 01/18/25 10:00 Ordered Lactate (Lactic Acid) Q4H Lab 01/18/25 14:00 Ordered Lactate (Lactic Acid) Q4H Lab 01/18/25 18:00 Ordered Lactate (Lactic Acid) Q4H Lab 01/18/25 22:00 Ordered Lactate (Lactic Acid) Q4H Lab 01/19/25 02:00 Ordered Lactate (Lactic Acid) Q4H Lab 01/19/25 06:00 Ordered Lactate (Lactic Acid) Q4H Lab 01/19/25 10:00 Ordered Lactate (Lactic Acid) Q4H Lab 01/19/25 14:00 Ordered Lactate (Lactic Acid) Q4H Lab 01/19/25 18:00 Ordered Lactate (Lactic Acid) Stat Lab 01/17/25 15:05 Results Lipase Stat Lab 01/17/25 15:05 Completed Lipid Panel AM DRAW Lab 01/18/25 05:00 Ordered Magnesium AM DRAW Lab 01/18/25 05:00 Ordered Magnesium Q4H Lab 01/17/25 22:00 Ordered Magnesium Q4H Lab 01/18/25 02:00 Ordered Magnesium Q4H Lab 01/18/25 06:00 Ordered Magnesium Q4H Lab 01/18/25 10:00 Ordered Magnesium Q4H Lab 01/18/25 14:00 Ordered Magnesium Q4H Lab 01/18/25 18:00 Ordered Magnesium Q4H Lab 01/18/25 22:00 Ordered Magnesium Q4H Lab 01/19/25 02:00 Ordered Magnesium Q4H Lab 01/19/25 06:00 Ordered Magnesium Q4H Lab 01/19/25 10:00 Ordered Magnesium Q4H Lab 01/19/25 14:00 Ordered Magnesium Q4H Lab 01/19/25 18:00 Ordered Phosphorous Q4H Lab 01/17/25 22:00 Ordered Phosphorous Q4H Lab 01/18/25 02:00 Ordered Phosphorous Q4H Lab 01/18/25 06:00 Ordered Phosphorous Q4H Lab 01/18/25 10:00 Ordered Phosphorous Q4H Lab 01/18/25 14:00 Ordered Phosphorous Q4H Lab 01/18/25 18:00 Ordered Phosphorous Q4H Lab 01/18/25 22:00 Ordered Phosphorous Q4 Lab 01/19/25 02:00 Ordered Phosphorous Q4H Lab 01/19/25 06:00 Ordered Phosphorous Q4H Lab 01/19/25 10:00 Ordered Phosphorous Q4 Lab 01/19/25 14:00 Ordered Phosphorous Q4 Lab 01/19/25 18:00 Ordered RSV [Respiratory Syncytial Virus Ag] Stat Lab 01/17/25 16:36 Completed Renal Function Panel Q4 Lab 01/17/25 22:00 Ordered Renal Function Panel Q4 Lab 01/18/25 02:00 Ordered Renal Function Panel Q4 Lab 01/18/25 06:00 Ordered Renal Function Panel Q4 Lab 01/18/25 10:00 Ordered Renal Function Panel Q4 Lab 01/18/25 14:00 Ordered Renal Function Panel Q4 Lab 01/18/25 18:00 Ordered Renal Function Panel Q4 Lab 01/18/25 22:00 Ordered Renal Function Panel Q4H Lab 01/19/25 02:00 Ordered Renal Function Panel Q4H Lab 01/19/25 06:00 Ordered Renal Function Panel Q4H Lab 01/19/25 10:00 Ordered Renal Function Panel Q4H Lab 01/19/25 14:00 Ordered Renal Function Panel Q4H Lab 01/19/25 18:00 Ordered Strep A Rapid Stat Lab 01/17/25 15:35 Completed Thyroid Stimulating Hormone AM DRAW Lab 01/18/25 05:00 Ordered Troponin I Stat Lab 01/17/25 15:05 Completed Urinalysis Routine Lab 01/17/25 17:53 Ordered Urinalysis Stat Lab 01/17/25 10:20 Completed Urinalysis, C/S if Indicated Stat Lab 01/17/25 10:20 Completed Venous Blood Gas Stat Lab 01/17/25 15:05 Completed Venous Blood Gas Stat Lab 01/17/25 16:51 Ordered D5 LR 250ml/hr Med 01/17/25 17:54 Ordered Dextrose 5%-Lactated Ringers [D5-Lr] 1,000 ml IV 250 mls/hr Dextrose 50% Syr [D50w Syringe Abboject] Med 01/17/25 17:54 Ordered 25 ml IV PRNMRX1 PRN Heparin Inj Med 01/17/25 22:00 Ordered 5,000 unit SC Q8HR Insulin Glargine Inj [Lantus Inj] Med 01/17/25 17:54 Once 25 unit SC X1 ONE Insulin Reg 100 Units/100 ml [Myxredlin] Med 01/17/25 16:48 Active 100 unit in 100 ml IV 0.1 unit/kg/hr Insulin Regular Med 01/17/25 13:49 Discontinued 12 unit SC X1 ONE KCL 10 mEq/100mL Med 01/17/25 17:54 Ordered POTASSIUM CHL 10 mEq IVPB [Kcl Ivpb] 10 meq in 100 ml IV 100 mls/hr KCL 20 mEq/L in D5LR Med 01/17/25 17:54 Ordered KCL 20 mEq/L in D5-LR 20 meq in 1,000 ml IV 250 mls/hr KCL 20 mEq/L in LR Med 01/17/25 17:54 Ordered Ringers Lactated 1000 ml [Lactated Ringers] 1,000 ml Pot Chl Additive [KCl Additive] 20 meq IV 250 mls/hr KCL 40 mEq/L in D5LR Med 01/17/25 17:54 Ordered Dextrose 5%-Lactated Ringers [D5-Lr] 1,000 ml Pot Chl Additive [KCl Additive] 40 meq IV 250 mls/hr KCL 40 mEq/L in LR Med 01/17/25 17:54 Ordered Ringers Lactated 1000 ml [Lactated Ringers] 1,000 ml Pot Chl Additive [KCl Additive] 40 meq IV 250 mls/hr LR 250ml/hr Med 01/17/25 17:54 Ordered Ringers Lactated 1000 ml [Lactated Ringers] 1,000 ml IV 250 mls/hr Magnesium Sulfate 2g/50mL Med 01/17/25 17:54 Ordered Magnesium Sulfate 2 GM Ivpb [Magnesium Sulfate Ivpb] 2 gm in 50 ml IV 25 mls/hr Ondansetron Inj [Zofran Inj] Med 01/17/25 17:49 Ordered 4 mg IV Q6H PRN Ondansetron Inj [Zofran Inj] Med 01/17/25 13:49 Discontinued 4 mg IV X1 ONE POT PHOS 15 mMol in NS 250 ML [Pot Phos 15 mMol in NS Med 01/17/25 17:54 Ordered 250 ml] 15 mmol in 250 ml IV PRN POTASSIUM CHL 10 mEq IVPB [Kcl Ivpb] Med 01/17/25 17:54 Ordered 10 meq in 100 ml IV PRN Pantoprazole Inj [Protonix Inj] Med 01/17/25 18:00 Ordered 40 mg IVP QDAY Piper/Tazo 3.375 gm Premix [Zosyn] Med 01/17/25 16:48 Discontinued 3.375 gm in 50 ml IV X1 Sodium Bicarb 8.4% SYR Med 01/17/25 17:54 Ordered 50 ml IV PRN PRN Sodium Chloride 0.9% 1000 ml [Ns] 1,000 ml Med 01/17/25 13:45 Active IV 200 mls/hr Sodium Chloride 0.9% 1000 ml [Ns] 1,000 ml Med 01/17/25 16:51 Discontinued IV 999 mls/hr Sodium Chloride 0.9% 1000 ml [Ns] 2,000 ml Med 01/17/25 13:32 Discontinued IV 1,000 mls/hr Sodium Chloride 0.9% 250 ml [Ns] 250 ml Med 01/17/25 17:54 Ordered Sod Phos Additive [NaPhos Additive] 15 mmol IV 62.5 mls/hr Code Status Routine Oth 01/17/25 17:49 Ordered Oxygen Delivery PRN RT 01/17/25 17:49 Active Vital Signs Vital signs: Vital Signs Temperature 98.5 F 01/17/25 13:39 Pulse Rate 118 H 01/17/25 13:39 Respiratory Rate 19 01/17/25 13:39 Blood Pressure 136/82 H 01/17/25 13:39 Pulse Oximetry (%) 98 01/17/25 13:39 Oxygen Delivery Method Room Air 01/17/25 13:39 Pulse ox is 98% on room air which is adequate. Nausea/Vomiting/Diarrhea MDM Narrative MDM Narrative:: Patient 29-year-old type I diabetic comes in nausea vomiting tachycardic appears dehydrated has history of DKA in the past. Medical workup was initiated on arrival with fluid boluses and some insulin. Sugar was over 500 on arrival here. Chest x-ray was done which reveals no infiltrates no effusion and normal cardiac silhouette. There was a delay in collecting the labs but the results came back laboratory studies reveal pH is 6.95 pCO2 of 30 consistent with a severe metabolic acidosis. White count is 19.2 hemoglobin 11.6 sodium 130 potassium 5 chloride 109 CO2 is less than 10 anion gap is 19 BUN 14 creatinine 1.0 glucose was 455 lactic acid elevated at 3 troponin is negative beta-hydroxybutyrate is elevated 4.9 urine reveals 295 red blood cells 3 white cells chest x-ray was negative as mentioned above Patient is obviously in DKA and will need to be admitted to the ICU. I spoke with critical care Dr. Mendoza discussed the case and agrees admit the patient. Will give a dose of Zosyn since the patient meets SIRS criteria. White count is elevated she is tachycardic. I ordered a second venous blood gas to see if we had any improvement after 2 L of fluid and been given here. 1/3 L is ordered. Reevaluation of the patient at 1650 hrs. that she is alert awake says she still feels lousy but actually looks clinically better to me even though she still tachycardic. Her sugar has come down with fluids and the initial dose of insulin. Patient data External records reviewed:: [facility] previous records (I reviewed 1-day admission on 09/25/2025 ) and EMS form Clinical information provided by:: patient and EMS Social determinants that could affect healthcare access:: none Patient has the following chronic illnesses:: T1DM How is presenting disease/condition affected by chronic disease/condition?: exacerbated by Evaluation data The following diagnostics were reviewed and interpreted by me:: lab results, radiology exam(s) and EKG tracing(s) (Sinus tachycardia, rate 118, no STEMI ) Lab and/or radiology exams considered but not ordered:: None Interpretation Summary: Ordering Physician: Yusuf Hall MD Date of Service: 01/17/25 Procedure(s): XR chest 1V portable Accession Number(s): [id number] cc: Alana Riddle; Yusuf Hall MD; Luis Ortiz MD~ Examination: AP chest single view Technique one AP portable upright chest single view Exam date and time: January 17, 2025 1400 hours INDICATIONS: Chest pain today. FINDINGS: Normal heart size Lungs are clear. The osseous structures are intact IMPRESSION: No active disease Dictated By: Luis Ortiz MD Signed By: <Electronically signed by Luis Ortiz MD in OV> 01/17/25 1444 Medications / Prescriptions Medications / Prescriptions considered but not ordered:: None Medication administrations:: Medication Administration History Sodium Chloride (Ns) 1,000 mls @ 200 mls/hr IV .Q5H CATY Stop: 02/16/25 13:44 Last Admin: 01/17/25 16:21 Dose: 200 mls/hr Documented By: RENEA Insulin Human Regular (Myxredlin) 100 unit in 100 mls @ 6.31 mls/hr IV .[id number] PRN; Protocol PRN Reason: PER PROTOCOL Stop: 02/16/25 16:47 Last Admin: 01/17/25 17:27 Dose: 0.1 unit/kg/hr, 6.31 mls/hr Documented By: HAILY Co-signed By: DB Discontinued Medications Sodium Chloride (Ns) 2,000 mls @ 1,000 mls/hr IV .Q2H ONE Stop: 01/17/25 15:31 Last Infusion: 01/17/25 16:00 Dose: Infused Documented By: Admin: 01/17/25 13:53 Dose: 1,000 mls/hr Documented By: DULCE Piperacillin/Tazobactam/Dextrose (Zosyn) 3.375 gm in 50 mls @ 100 mls/hr IV X1 ONE Stop: 01/17/25 17:17 Last Admin: 01/17/25 17:15 Dose: 100 mls/hr Documented By: HAILY Sodium Chloride (Ns) 1,000 mls @ 999 mls/hr IV .Q1H1M ONE Stop: 01/17/25 17:51 Last Admin: 01/17/25 16:57 Dose: 999 mls/hr Documented By: HAILY Insulin Human Regular (Insulin Hum Regular 1 Unit/0.01 Ml (Per Unit)) 12 unit SC X1 ONE Stop: 01/17/25 13:50 Last Admin: 01/17/25 14:04 Dose: 12 unit Documented By: DULCE Co-signed By: RENEA Ondansetron HCl (Ondansetron Inj 2 Mg/Ml Inj 2 Ml) 4 mg IV X1 ONE; Protocol Stop: 01/17/25 13:50 Last Admin: 01/17/25 14:06 Dose: 4 mg Documented By: DULCE See above Consultations Consultation(s) initiated? (list below): Yes Consultation #1 (Physician, Specialty, Details): [id number]: I spoke with student life advisor Dr. Gonsales. Discussed patients PMHx, HPI, ED course, exam findings, labs, and radiology results. Sales Appointment Coordinator accepts the patient for admission. Diagnosis Nausea Differential Diagnosis: gastroenteritis, drug-induced nausea and vomiting, dehydration and other (DKA) Most likely diagnosis given after review of the tests above:: Acute Hyperglycemia Hx of type 1 diabetes nausea and vomiting DKA Metabolic acidosis Leukocytosis Admission Indicated Admission indicated?: indicated Admission Request Was there a request for admission?: Yes Admission Attestation Admission request attestation: Discussed case with [] from Hospitalist service regarding admission. Discussed patients ED course, exam findings, labs, and radiology results. The Hospitalist [agrees,declines] to accept the patient for admission. Disposition Plan Disposition Plan: Admit Critical Care Time Critical Care Time Critical Care Time: Yes Total Critical Care Time (min.): 45 Attestation: The high probability of sudden, clinically significant deterioration in the patient's condition required the highest level of my preparedness to intervene urgently. The services I provided to this patient were to treat and/or prevent clinically significant deterioration. Services included the following: chart data review, reviewing nursing notes and/or old charts, documentation time, pricing consultant collaboration regarding findings and treatment options, medication orders and management, direct patient care, vital sign assessments and ordering, interpreting and reviewing diagnostic studies and lab tests. Aggregate critical care time includes only time during which I was engaged in work directly related to the patient's care, as described above, whether at bedside or elsewhere in the Emergency Department. It did not include time spent performing other reported procedures or the services of residents, students, nurses or physician assistants. Discharge Plan Plan Patient Disposition: Admit Acute Care w/in Hospital Disposition Comment: ICU Dr. Mendoza Prescriptions/Referrals Prescriptions/Med Rec: No Action enoxaparin 60 mg/0.6 mL syringe 60 mg subcut BID insulin lispro [Admelog SoloStar U-100 Insulin] 100 unit/mL Insulin Pen 20 unit SUBCUT TIDWMEAL aspirin 81 mg Tablet 81 mg PO QDAY prenat.vits,perez,[id number] Tablet 1 tab PO QDAY Lantus Solostar U-100 Insulin 100 unit/mL (3 mL) insulin pen 15 unit subcut QAM 30 Days Qty: 4.5 2RF Referrals: Alana Riddle FNP [Primary Care Provider] - In 1 week Problem List Clinical Impression: Acute hyperglycemia, Hx of type 1 diabetes mellitus, Nausea & vomiting, Diabetic ketoacidosis, Metabolic acidosis, Leukocytosis Patient/Caregiver Discharge Instructions Print Language: Sinhala Stand Alone Forms: [employer] Award Info., Patient Portal Info Letter
[2025-01-17 15:36] LABS: Base Excess, Venous -24 (-3-3); O2 Saturation, Venous 83 % (96-97); PCO2, Venous 30 mmHg (36-56); PO2, Venous 66 mmHg (15-58); pH, Venous 6.95 (7.33-7.66)
[2025-01-17 15:38] LABS: Basophils % (Auto) 0 % (0-2.5); Eosinophils % (Auto) 0 % (0-10); Hematocrit 38.3 % (36.0-46.0); Hemoglobin 11.6 g/dL (12.0-16.0); Immature Granulocytes % (Auto) 1 % (0-0); Immature Granulocytes Auto 0.09 Thou/mm3 (0.00-0.00); Lymphocytes # (Auto) 1.7 Thou/mm3 (1.0-4.8); Lymphocytes % (Auto) 9 % (10-50); Mean Corpuscular HGB Conc 30.3 g/dl (31.0-37.0); Mean Corpuscular Hemoglobin 26.1 pg (25.0-35.0); Mean Corpuscular Volume 86 fL (80-100); Monocytes # (Auto) 0.7 Thou/mm3 (0.0-0.8); Monocytes % (Auto) 4 % (0-12); Neutrophils # (Auto) 16.7 Thou/mm3 (1.8-7.7); Neutrophils % (Auto) 87 % (37-80); Nucleated Red Blood Cell % 0 /100 WBC (0); Platelet Count 412 Thou/mm3 (140-440); RDW Standard Deviation 53.3 fL (36.4-46.3); Red Blood Count 4.45 Miln/mm3 (4.00-5.20); White Blood Count 19.2 Thou/mm3 (3.6-11.0)
[2025-01-17 15:44] LABS: Beta Hydroxybutyrate 4.9 mmol/L (<0.6)
[2025-01-17 16:01] LABS: Alanine Aminotransferase 32 U/L (10-49); Albumin, Serum 4.7 gm/dL (3.5-5.0); Albumin/Globulin Ratio 1.5 (1.2-2.2); Alkaline Phosphatase 154 U/L (46-116); Anion Gap 19 (7-16); Aspartate Amino Transferase 57 U/L (0-34); BUN/Creatinine Ratio 14 Ratio (12-20); Bilirubin,Total 0.3 mg/dL (0.3-1.2); Blood Urea Nitrogen 14 mg/dL (9-23); Calcium 8.2 mg/dL (8.3-10.6); Calcium (Corrected) 8.2 mg/dL (8.5-10.1); Carbon Dioxide < 10.0 mMol/L (20.0-31.0); Chloride 109 mMol/L (98-107); Estimated Creatinine Clearance 73.8 mL/min (>60); Globulin 3.2 gm/dL (2.3-3.5); Lipase 30 U/L (12-53); Osmolality,Calculated 296 (275-295); Sodium 138 mMol/L (136-145); Total Protein 7.9 gm/dL (5.7-8.2); Troponin I < 0.002 ng/mL (0.0-0.045); eGFR > 60 See Note
[2025-01-17 16:03] LABS: Glucose 455 mg/dL (74-106)
[2025-01-17] MEDS: SODIUM CHLORIDE 0.9% 1000 ML 1,000 ML 200 ML IV (16:21)
[2025-01-17] MEDS: SODIUM CHLORIDE 0.9% 1000 ML 1,000 ML 999 ML IV (16:57)
[2025-01-17] MEDS: PIPER/TAZO 3.375 GM PREMIX 3.375 GM/50 ML BAG IV (17:15)
[2025-01-17] MEDS: INSULIN REG 100 UNITS/100 ML 100 UNIT/100 ML BAG 6.31 UNIT IV (17:27)
[2025-01-17 17:39] LABS: Respiratory Syncytial Virus Ag Negative (Negative)
[2025-01-17 17:39] LABS: Strep A Rapid Negative (Negative)
--- NOTE | 2025-01-17 18:03 | ESHP_ITS ---
Documentation for date of: 01/17/25 [facility] History of Present Illness Chief complaint: N/V History of present illness: 72-year-old female with past medical history of DM1, DVT and PE (on Xarelto), anxiety and 1 miscarriage, was admitted to the ICU on 01/17/2025 after coming to the ED with complaints of nausea and vomiting. In the ED patient was found to have blood sugars of 455 and beta hydroxybutyrate of 4.9. Patient states that these past few days she has been feeling sick with some cold-like symptoms and stated that she has an insulin pump, but her blood sugars have been out of control as of recently due to her feeling sick. She mentioned normally uses 50 units/day of the insulin, but that since yesterday she used all the insulin in the pump and ran out of insulin today. She was recently admitted on August 2024 due to DKA. She also stated that her kids are sick with similar symptoms that she had. She admitted having a productive cough, headaches, nausea, vomitings, and postnasal drip, but denied any chest pain, fevers, shortness of breath, lower extremity swelling, dysuria, or blood in the stools or vomit. ED course: Initially came in hypertensive and tachycardic. Initial labs were evaluated for leukocytosis (19.2), low hemoglobin (9.6), VBG showed pH 6.95, PCO2 of 30, and PO2 of 66, anion gap of 19 with bicarb less than 10, glucose 455, lactic acid 3, beta hydroxy being 9, and UA was positive for ketones and bacteria. Initial chest x-ray did not show any active disease. Patient received 3 L of IV fluids in the ER and was started on insulin drip. PMH: As above Surgical Hx: Meds: Lexapro, Xarelto, and insulin Review of Systems Review of Systems Narrative Review of Systems: Constitutional: Denies sweats, Denies weight loss/gain, Denies fever, Denies chills. HEENT: Denies hearing loss, Denies ear pain, Admits postnasal drip, Denies double vision, Denies blurry vision. Respiratory: Denies shortness of breath, Admits cough, Denies wheezing. Cardiovascular: Denies chest pain, Denies palpitations, Denies sudden loss of consciousness. GI: Denies blood in stool, Denies constipation, Denies abdominal pain, Denies difficulty swallowing, Admits nausea and vomit. : Denies urinary incontinence, Denies pain while urinating, Denies increased urinary frequency. MSK: Denies joint pain, Denies joint swelling, Denies numbness. Skin: Denies rash, Denies itching, Denies easy bruising. Neuro: Admits headaches, Denies dizziness, Denies seizures. Past Medical History Past Medical History CARDIAC: Positive Cardiac Disorders and Deep Vein Thrombosis RESPIRATORY: Positive Pulmonary Embolism REPRODUCTIVE: Positive Previous Pregnancies ENDOCRINE: Positive Endocrine Disorders and Diabetes Mellitus Type 1 HEMATOLOGIC: Positive Blood Disorders and Clotting Problems OTHER HISTORY: Positive Hospitalization Family History FAMILY HISTORY: Positive Family Cancer (PT'S GRANDPA PROSTATE CANCER) Surgical History SURGICAL: Positive Section Social History SMOKING STATUS: Current every day smoker SECOND HAND EXPOSURE: No SUBSTANCE USE: does not use Exam Vital Signs Temp Pulse Resp BP Pulse Ox O2 Del Method 98.4 F 129 H 20 104/58 L 99 Room Air 01/17/25 16:26 01/17/25 16:26 01/17/25 16:26 01/17/25 16:26 01/17/25 16:26 01/17/25 16:26 Narrative Exam General: A/O x3, mild distress, well-nourished, well-developed Eyes: PERRL, EOMI. Anicteric, vision grossly intact. Ears: No ear pain, no ear discharge, Hearing grossly intact. Nose: No nasal discharge. Mouth/Throat: Dry mucous membranes, no redness, no lesions. Neck: Neck supple, non-tender, no cervical lymphadenopathy. Lungs: Clear IBAN to auscultation and percussion, No accessory muscle use. Cardio: Normal S1/S2, regular rhythm, no murmurs, no JVD Abdomen: Soft, non-tender, no palpable masses, peristalsis present, no guarding or rebound. Extremities: Symmetrical, no significant deformities, no peripheral edema , non-tender, peripheral pulses presents. Skin: No rashes, no lesions, warm to touch. Neuro: No focal neurological deficits. motor and sensory intact. Psych: Cooperative, appropriate mood and effect. Results: Labs 01/17/25 15:05 01/17/25 15:05 Labs: Short CBC 01/17/25 Range/Units 15:05 WBC 19.2 H (3.6-11.0) Thou/mm3 Hgb 11.6 L (12.0-16.0) g/dL Hct 38.3 (36.0-46.0) % Plt Count 412 (140-440) Thou/mm3 BMP 01/17/25 15:05 Sodium 138 Potassium 5.0 Chloride 109 H Carbon Dioxide < 10.0 L* BUN 14 Creatinine 1.0 Glucose 455 H* Calcium 8.2 L Cardiac Enzymes 01/17/25 Range/Units 15:05 Troponin I < 0.002 (0.0-0.045) ng/mL Liver Function 01/17/25 Range/Units 15:05 Total Bilirubin 0.3 (0.3-1.2) mg/dL AST 57 H (0-34) U/L ALT 32 (10-49) U/L Alkaline Phosphatase 154 H (46-116) U/L Albumin 4.7 (3.5-5.0) gm/dL Urine 01/17/25 Range/Units 10:20 Urine Color Colorless A (Lt Yel-Yel) Urine Clarity Clear (Clear/Hazy) Urine pH 5.5 (5.0-7.0) Ur Specific Crowder 1.029 (1.001-1.035) Urine Protein Trace (Neg - Trace) Urine Glucose (UA) 4+ A (Negative) ABG Interpretation ABG results: 01/17/25 15:05 VBG pH 6.95 L VBG pCO2 30 L VBG pO2 66 H VBG Base Excess -24 L Quality Measures Quality Measures none Medications Home Medications and Allergies Home Medications ?Medication ?Instructions ?Recorded ?Confirmed ?Type aspirin 81 mg tablet 81 mg PO QDAY 01/04/2201/04 History enoxaparin 60 mg/0.6 mL 60 mg subcut BID 01/04/22 History subcutaneous syringe insulin lispro 100 unit/mL 20 unit subcut TIDWMEAL 08/1701/04/22 History subcutaneous pen (Admelog SoloStar U-100 Insulin lispro) prenat.vits,perez,mdz-runa-gsktd 1 tab PO QDAY 01/04/22 01/04/22 History Allergies Allergy/AdvReac Type Severity Reaction Status Date / Time No Known Allergies Allergy Verified 01/17/25 13:38 Visit Medications Dextrose (Dextrose 50%-Water Inj 50 Ml Syringe) 25 ml IV [id number] PRN PRN Reason: Blood Sugar - Low Heparin Sodium (Porcine) (Heparin Sod Inj 5000 Unit/Ml Vial) 5,000 unit SC Q8HR [facility] Stop: 01/31/25 21:59 Sodium Chloride (Ns) 1,000 mls @ 200 mls/hr IV .Q5H CATY Stop: 02/16/25 13:44 Last Admin: 01/17/25 16:21 Dose: 200 mls/hr Insulin Human Regular (Myxredlin) 100 unit in 100 mls @ 6.31 mls/hr IV .[id number] PRN; Protocol PRN Reason: PER PROTOCOL Stop: 02/16/25 16:47 Last Admin: 01/17/25 17:27 Dose: 0.1 unit/kg/hr, 6.31 mls/hr Potassium Chloride (Kcl Ivpb) 10 meq in 100 mls @ 100 mls/hr IV .Q1H PRN PRN Reason: IF POTASSIUM LESS THAN 3.3 Stop: 02/16/25 17:53 Magnesium Sulfate (Magnesium Sulfate Ivpb) 2 gm in 50 mls @ 25 mls/hr IV .Q2H PRN PRN Reason: PER DKA PROTOCOL Stop: 02/16/25 17:53 Dextrose/Lactated Ringer's (D5-Lr) 1,000 mls @ 250 mls/hr IV .Q4H PRN PRN Reason: PER PROTOCOL Stop: 02/16/25 17:53 Lactated Ringer's (Lactated Ringers) 1,000 mls @ 250 mls/hr IV .Q4H PRN PRN Reason: PER PROTOCOL Stop: 01/18/25 17:53 Potassium Chloride 20 meq/ (Lactated Ringer's) 1,010 mls @ 250 mls/hr IV .Q4H3M PRN PRN Reason: K LEVEL 3.3 TO 5.3mM/L Stop: 02/16/25 17:53 Potassium Chloride 40 meq/ (Lactated Ringer's) 1,020 mls @ 250 mls/hr IV .Q4H5M PRN PRN Reason: K LEVEL < 3.3 mM/L Stop: 02/16/25 17:53 Potassium Chloride 40 meq/ (Dextrose/Lactated Ringer's) 1,020 mls @ 250 mls/hr IV .Q4H5M PRN PRN Reason: K LEVEL < 3.3mM/L Stop: 02/16/25 17:53 Potassium Cl/Dextrose/Lact Ringer's (Kcl 20 Meq/L In D5-Lr) 20 meq in 1,000 mls @ 250 mls/hr IV .Q4H PRN PRN Reason: K LEVEL 3.3 TO 5.3 mM/L Stop: 02/16/25 17:53 Potassium Chloride (Kcl Ivpb) 10 meq in 100 mls @ 50 mls/hr IV PRN PRN PRN Reason: K LEVEL 3.3 to 5.3 & BG > 200 Stop: 02/16/25 17:53 Potassium Phosphate (Pot Phos 15 Mmol In Ns 250 Ml) 15 mmol in 250 mls @ 62.5 mls/hr IV PRN PRN PRN Reason: Phosphate <= 1mg/dL Stop: 02/16/25 17:53 Sodium Phosphate 15 mmol/ (Sodium Chloride) 255 mls @ 62.5 mls/hr IV .Q4H5M PRN PRN Reason: Phosphate <= 1mg/dL and K> than 5.3 Stop: 02/16/25 17:53 Ondansetron HCl (Ondansetron Inj 2 Mg/Ml Inj 2 Ml) 4 mg IV Q6H PRN; Protocol PRN Reason: NAUSEA OR VOMITING Stop: 02/16/25 17:48 Pantoprazole Sodium (Pantoprazole Inj 40 Mg Vial) 40 mg IVP QDAY CATY Stop: 02/16/25 17:59 Sodium Bicarbonate (Sodium Bicarb Inj 8.4% Syr 50 Ml Syringe) 50 ml IV PRN PRN PRN Reason: For ph <= to 7.0 Stop: 02/16/25 17:53 Discontinued Medications Sodium Chloride (Ns) 2,000 mls @ 1,000 mls/hr IV .Q2H ONE Stop: 01/17/25 15:31 Last Infusion: 01/17/25 16:00 Dose: Infused Piperacillin/Tazobactam/Dextrose (Zosyn) 3.375 gm in 50 mls @ 100 mls/hr IV X1 ONE Stop: 01/17/25 17:17 Last Admin: 01/17/25 17:15 Dose: 100 mls/hr Sodium Chloride (Ns) 1,000 mls @ 999 mls/hr IV .Q1H1M ONE Stop: 01/17/25 17:51 Last Admin: 01/17/25 16:57 Dose: 999 mls/hr Insulin Glargine (Insulin Glargine (Lantus) 5 Unit/0.05 Ml (Per 5 Units)) 25 unit SC X1 ONE Stop: 01/17/25 17:55 Insulin Human Regular (Insulin Hum Regular 1 Unit/0.01 Ml (Per Unit)) 12 unit SC X1 ONE Stop: 01/17/25 13:50 Last Admin: 01/17/25 14:04 Dose: 12 unit Ondansetron HCl (Ondansetron Inj 2 Mg/Ml Inj 2 Ml) 4 mg IV X1 ONE; Protocol Stop: 01/17/25 13:50 Last Admin: 01/17/25 14:06 Dose: 4 mg Assessment & Plan Plan 72-year-old female with past medical history of DM1, DVT and PE (on Xarelto), anxiety and 1 miscarriage, was admitted to the ICU 01/17/2025 due to DKA. 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 disease CVS: #Tachycardia Likely in the setting of dehydration Respiratory: No active disease Renal: #High anion gap metabolic acidosis #Lactic acidosis Patient may have anion gap of 19, bicarb of less than 10, and lactic acid of 3 There is most likely in the setting of DKA Will get every 4 renal panels and lactic acids IV fluids GI: #Intractable nausea and vomiting Patient has been having episodes of intractable nausea and vomiting likely in the setting of DKA Zofran ordered Endo: #DKA #Hx of DM1 Patient uses a insulin pump, but as of recently has been using more insulin than she normally does. She stated that this was likely due to her being recently sick. A1c on 09/25/2024 was 11.4 Blood glucose initially was 455 with beta hydroxybutyrate of 4.9 DKA protocol Lantus 25 units x 1 IV fluids Every 4 hours lactic acid and renal panel N.p.o. Heme: #Hx of DVT and PE Patient is currently on Xarelto due to a history of DVT and PE Patient also stated that she had 1 miscarriage and there is history of miscarriages in her family Will give heparin subcu for now given that she is n.p.o. Will start Xarelto again when patient is able to tolerate diet #Leukocytosis WBC 19.2 Most likely reactive Will continue to monitor #Normocytic normochromic anemia Patient's hemoglobin 11.6 Baseline is around 10-11 No active signs of bleeding Will continue to monitor ID: No active disease Hospital Maintenance: Diet: NPO DVT ppx: heparin subc GI ppx: protonix IV lines: PIV Posadas: none Code status: Full code Dispo: ICU for DKA Case disclosed with Attending Dr. Dru Orr PGY1 Attending Provider Attestation/Addendum Patient was seen with the PGY 1 and PGY 3 resident I agreed on the above assessment and plan Patient is on CRRT now Will switch to dialysis tomorrow Patient is known to have ESRD Status post peripheral vascular disease with acute thrombosis was not amicable to surgery versus angioplasty Vascular surgery consulted and cardiology consulted both denied any further intervention Has EKG changes which showed to be due to medications than 2 ischemia Troponin keep coming down Diagnosed with SVT versus MAT versus A-fib Has the following problems, encephalopathy, shock now on very small amount of vasopressors Pneumonia with stenotrophomonas bacteria on Levaquin Moderate reduction in EF 45 to 50%, SVT A-fib MAT Hypertension anemia chronic Right lower lung atelectasis on Levaquin Transaminitis with hepatomegaly most likely due to shock liver versus hypoxia Chronic and tolerated with acute limb ischemia Plan will continue with Levaquin, continue with hemodialysis and stop CRRT, try to extubate him today but patient sedation was too much for him and he could not be maintained on his own respiratory rate so he had to be resumed back again on ventilation and will reduce his sedation to minimal amount of Precedex and try to extubate him tomorrow
[2025-01-17 18:29] LABS: Reflex Lactate? Y
[2025-01-17] MEDS: INSULIN GLARGINE (Lantus) 5 UNIT/0.05 ML (PER 5 UNITS) 25 UNIT SC (18:57)
[2025-01-17] MEDS: PANTOPRAZOLE INJ 40 MG VIAL IVP (18:58)
[2025-01-17] MEDS: RINGERS LACTATED 1000 ML 1,000 ML 250 ML IV (19:14)
--- NOTE | 2025-01-17 19:19 | PC.NURSE ---
CALLED DR. RUTHERFORD TO PLACE ORDER FOR MAG LEVEL FOR PATIENT.
[2025-01-17] MEDS: POT CHL ADDITIVE 20 MEQ in DEXTROSE 5%-LACTATED RINGERS 1,000 ML 250 MEQ IV (20:37)
[2025-01-17] MEDS: DEXTROSE 50%-WATER INJ 50 ML SYRINGE 25 ML IV (20:39)
[2025-01-17 21:52] LABS: Lactic Acid, 3 HR 1.7 mMol/L (0.4-2.0)
[2025-01-17 21:53] LABS: Base Excess, Venous -19 (-3-3); O2 Saturation, Venous 86 % (96-97); PCO2, Venous 24 mmHg (36-56); PO2, Venous 53 mmHg (15-58); pH, Venous 7.15 (7.33-7.66)
[2025-01-17 22:16] LABS: Albumin, Serum 3.8 gm/dL (3.5-5.0); Anion Gap 15 (7-16); BUN/Creatinine Ratio 8 Ratio (12-20); Blood Urea Nitrogen 7 mg/dL (9-23); Calcium 7.3 mg/dL (8.3-10.6); Calcium (Corrected) 7.5 mg/dL (8.5-10.1); Chloride 115 mMol/L (98-107); Creatinine (Component) 0.9 mg/dL (0.6-1.3); Glucose 234 mg/dL (74-106); Magnesium 1.7 mg/dL (1.6-2.6); Osmolality,Calculated 285 (275-295); Phosphorous 2.4 mg/dL (2.4-5.1); Potassium 4.8 mMol/L (3.4-5.1); Sodium 140 mMol/L (136-145); eGFR > 60 See Note
[2025-01-17 22:28] LABS: Carbon Dioxide < 10.0 mMol/L (20.0-31.0)
[2025-01-17] MEDS: HEPARIN SOD INJ 5000 UNIT/ML VIAL SC (22:34)
[2025-01-17] MEDS: Magnesium Sulfate 2 GM Ivpb 2 GM/50 ML BAG IV (22:34)
[2025-01-18] VITALS (26 sets, daily range): BP systolic 86–123; BP diastolic 47–94; PULSE 90–119; RESP 6–100; TEMP 36.8–37.2; O2SAT 97–100; BMI 24.4; BMI 24.5
[2025-01-18] MEDS: POTASSIUM CHL 10 mEq IVPB 10 MEQ/100 ML BAG 50 MEQ IV (00:24)
[2025-01-18] MEDS: ACETAMINOPHEN 325 MG TABLET 650 MG PO (00:41)
[2025-01-18] MEDS: POT CHL ADDITIVE 20 MEQ in DEXTROSE 5%-LACTATED RINGERS 1,000 ML 250 MEQ IV ×2 (01:55→09:13)
[2025-01-18 02:40] LABS: Lactate (Lactic Acid) 0.5 mMol/L (0.4-2.0)
[2025-01-18 02:41] LABS: Base Excess, Venous -11 (-3-3); O2 Saturation, Venous 100 % (96-97); PCO2, Venous 30 mmHg (36-56); PO2, Venous 117 mmHg (15-58); pH, Venous 7.28 (7.33-7.66)
[2025-01-18 03:00] LABS: Albumin, Serum 3.6 gm/dL (3.5-5.0); Anion Gap 9 (7-16); BUN/Creatinine Ratio 8 Ratio (12-20); Blood Urea Nitrogen 6 mg/dL (9-23); Calcium 7.5 mg/dL (8.3-10.6); Calcium (Corrected) 7.8 mg/dL (8.5-10.1); Chloride 114 mMol/L (98-107); Creatinine (Component) 0.8 mg/dL (0.6-1.3); Estimated Creatinine Clearance 92.2 mL/min (>60); Glucose 179 mg/dL (74-106); Magnesium 2.1 mg/dL (1.6-2.6); Osmolality,Calculated 275 (275-295); Phosphorous 1.6 mg/dL (2.4-5.1); Sodium 137 mMol/L (136-145); eGFR > 60 See Note
[2025-01-18 03:05] LABS: Carbon Dioxide 13.6 mMol/L (20.0-31.0)
[2025-01-18] MEDS: DEXTROSE 5%-LACTATED RINGERS 1,000 ML 250 ML IV (06:00)
[2025-01-18] MEDS: HEPARIN SOD INJ 5000 UNIT/ML VIAL SC (06:06)
[2025-01-18 07:03] LABS: Base Excess, Venous -8 (-3-3); Lactate (Lactic Acid) 1.2 mMol/L (0.4-2.0); O2 Saturation, Venous 100 % (96-97); PCO2, Venous 28 mmHg (36-56); PO2, Venous 136 mmHg (15-58); pH, Venous 7.37 (7.33-7.66)
[2025-01-18 07:50] LABS: Albumin, Serum 3.5 gm/dL (3.5-5.0); Anion Gap 11 (7-16); BUN/Creatinine Ratio 8 Ratio (12-20); Blood Urea Nitrogen 6 mg/dL (9-23); Calcium 7.6 mg/dL (8.3-10.6); Chloride 113 mMol/L (98-107); Creatinine (Component) 0.8 mg/dL (0.6-1.3); Estimated Creatinine Clearance 90.5 mL/min (>60); Glucose 152 mg/dL (74-106); Magnesium 1.9 mg/dL (1.6-2.6); Osmolality,Calculated 274 (275-295); Phosphorous 1.5 mg/dL (2.4-5.1); Sodium 137 mMol/L (136-145); Thyroid Stimulating Hormone 0.57 uIU/mL (0.55-4.78); eGFR > 60 See Note
[2025-01-18 07:53] LABS: Basophils % (Auto) 0 % (0-2.5); Eosinophils % (Auto) 0 % (0-10); Hematocrit 28.4 % (36.0-46.0); Hemoglobin 9.1 g/dL (12.0-16.0); Immature Granulocytes % (Auto) 0 % (0-0); Immature Granulocytes Auto 0.02 Thou/mm3 (0.00-0.00); Lymphocytes # (Auto) 3.3 Thou/mm3 (1.0-4.8); Lymphocytes % (Auto) 34 % (10-50); Mean Corpuscular Hemoglobin 25.9 pg (25.0-35.0); Mean Corpuscular Volume 81 fL (80-100); Monocytes # (Auto) 0.8 Thou/mm3 (0.0-0.8); Monocytes % (Auto) 8 % (0-12); Neutrophils # (Auto) 5.5 Thou/mm3 (1.8-7.7); Neutrophils % (Auto) 57 % (37-80); Nucleated Red Blood Cell % 0 /100 WBC (0); Platelet Count 280 Thou/mm3 (140-440); RDW Standard Deviation 50.4 fL (36.4-46.3); Red Blood Count 3.51 Miln/mm3 (4.00-5.20); White Blood Count 9.6 Thou/mm3 (3.6-11.0)
[2025-01-18 08:00] LABS: Carbon Dioxide 13.3 mMol/L (20.0-31.0)
[2025-01-18] MEDS: PANTOPRAZOLE INJ 40 MG VIAL IVP (08:22)
--- NOTE | 2025-01-18 08:32 | PC.SS ---
ADVERTISING AGENCY MANAGER conducted bedside contact with the patient conduct initial assessment and to discuss discharge planning.? Patient confirmed demographic information.? Patient resides at home with spouse, Alejandra Nuñez .? Patient does not utilize any form of DME to assist with ambulation.? Patient does not utilize home oxygen.? Patient describes the ability to complete ADL?s independently.? Patient identified partner, Jen Eisenberg; as medical surrogate decision maker.? Patient?s PCP is Alana Riddle.? Patient does not participate with dialysis.? Patient does not possess any specialty providers.? Patient possesses history of diabetes, insulin dependent.? Plan is for the patient to return home at the time of discharge.? Family will provide transportation on behalf of the patient. ?No discharge needs identified by the patient.? No further intervention required at this time, pediatric social worker will be available to address any further concerns.? Next of Kin: Alejandra Nuñez D/C Plan: Home
--- NOTE | 2025-01-18 08:34 | ESHP_ITS ---
Addendum History & Physical Addendum Date of report being addended: 01/17/25 Narrative: He also reports he was mistakenly attested so this is a replacement for that note Patient Name: JEYSON RDZ : 1995 Documentation for date of: 01/17/25 HPI History of Present Illness Chief complaint: N/V History of present illness: 72-year-old female with past medical history of DM1, DVT and PE (on Xarelto), anxiety and 1 miscarriage, was admitted to the ICU on 01/17/2025 after coming to the ED with complaints of nausea and vomiting. In the ED patient was found to have blood sugars of 455 and beta hydroxybutyrate of 4.9. Patient states that these past few days she has been feeling sick with some cold-like symptoms and stated that she has an insulin pump, but her blood sugars have been out of control as of recently due to her feeling sick. She mentioned normally uses 50 units/day of the insulin, but that since yesterday she used all the insulin in the pump and ran out of insulin today. She was recently admitted on August 2024 due to DKA. She also stated that her kids are sick with similar symptoms that she had. She admitted having a productive cough, headaches, nausea, vomitings, and postnasal drip, but denied any chest pain, fevers, shortness of breath, lower extremity swelling, dysuria, or blood in the stools or vomit. ED course: Initially came in hypertensive and tachycardic. Initial labs were evaluated for leukocytosis (19.2), low hemoglobin (9.6), VBG showed pH 6.95, PCO2 of 30, and PO2 of 66, anion gap of 19 with bicarb less than 10, glucose 455, lactic acid 3, beta hydroxy being 9, and UA was positive for ketones and bacteria. Initial [facility]abella st x-ray did not show any active disease. Patient received 3 L of IV fluids in the ER and was started on insulin drip. PMH: As above Surgical Hx: Meds: Lexapro, Xarelto, and insulin Review of Systems Review of Systems Narrative Review of Systems: Constitutional: Denies sweats, Denies weight loss/gain, Denies fever, Denies chills. HEENT: Denies hearing loss, Denies ear pain, Admits postnasal drip, Denies double vision, Denies blurry vision. Respiratory: Denies shortness of breath, Admits cough, Denies wheezing. Cardiovascular: Denies chest pain, Denies palpitations, Denies sudden loss of consciousness. GI: Denies blood in stool, Denies constipation, Denies abdominal pain, Denies difficulty swallowing, Admits nausea and vomit. : Denies urinary incontinence, Denies pain while urinating, Denies increased urinary frequency. MSK: Denies joint pain, Denies joint swelling, Denies numbness. Skin: Denies rash, Denies itching, Denies easy bruising. Neuro: Admits headaches, Denies dizziness, Denies seizures. Past Medical History Past Medical History CARDIAC: Positive Cardiac Disorders and Deep Vein Thrombosis RESPIRATORY: Positive Pulmonary Embolism REPRODUCTIVE: Positive Previous Pregnancies ENDOCRINE: Positive Endocrine Disorders and Diabetes Mellitus Type 1 HEMATOLOGIC: Positive Blood Disorders and Clotting Problems OTHER HISTORY: Positive Hospitalization Family History FAMILY HISTORY: Positive Family Cancer (PT'S GRANDPA PROSTATE CANCER) Surgical History SURGICAL: Positive Section Social History SMOKING STATUS: Current every day smoker SECOND HAND EXPOSURE: No SUBSTANCE USE: does not use Exam Vital Signs Temp Pulse Resp BP Pulse Ox O2 Del Method 98.4 F 129 H 20 104/58 L 99 Room Air 01/17/25 16:26 01/17/25 16:26 01/17/25 16:26 01/17/25 16:26 01/17/25 16:26 01/17/25 16:26 Narrative Exam General: A/O x3, mild distress, well-nourished, well-developed Eyes: PERRL, EOMI. Anicteric, vision grossly intact. Ears: No ear pain, no ear discharge, Hearing grossly intact. Nose: No nasal discharge. Mouth/Throat: Dry mucous membranes, no redness, no lesions. Neck: Neck supple, non-tender, no cervical lymphadenopathy. Lungs: Clear IBAN to auscultation and percussion, No accessory muscle use. Cardio: Normal S1/S2, regular rhythm, no murmurs, no JVD Abdomen: Soft, non-tender, no palpable masses, peristalsis present, no guarding or rebound. Extremities: Symmetrical, no significant deformities, no peripheral edema , non-tender, peripheral pulses presents. Skin: No rashes, no lesions, warm to touch. Neuro: No focal neurological deficits. motor and sensory intact. Psych: Cooperative, appropriate mood and effect. Results: Labs 01/17/25 15:05 document embedded image 01/17/25 15:05 document embedded image Labs: Short CBC 01/17/25 Range/Units 15:05 WBC 19.2 H (3.6-11.0) Thou/mm3 Hgb 11.6 L (12.0-16.0) g/dL Hct 38.3 (36.0-46.0) % Plt Count 412 (140-440) Thou/mm3 BMP 01/17/25 15:05 Sodium 138 Potassium 5.0 Chloride 109 H Carbon Dioxide < 10.0 L* BUN 14 Creatinine 1.0 Glucose 455 H* Calcium 8.2 L Cardiac Enzymes 01/17/25 Range/Units 15:05 Troponin I < 0.002 (0.0-0.045) ng/mL Liver Function 01/17/25 Range/Units 15:05 Total Bilirubin 0.3 (0.3-1.2) mg/dL AST 57 H (0-34) U/L ALT 32 (10-49) U/L Alkaline Phosphatase 154 H (46-116) U/L Albumin 4.7 (3.5-5.0) gm/dL Urine 01/17/25 Range/Units 10:20 Urine Color Colorless A (Lt Yel-Yel) Urine Clarity Clear (Clear/Hazy) Urine pH 5.5 (5.0-7.0) Ur Specific [place] 1.029 (1.001-1.035) Urine Protein Trace (Neg - Trace) Urine Glucose (UA) 4+ A (Negative) ABG Interpretation ABG results: 01/17/25 15:05 VBG pH 6.95 L VBG pCO2 30 L VBG pO2 66 H VBG Base Excess -24 L Quality Measures Quality Measures none Medications Home Medications and Allergies Home Medications Medication Instructions Recorded Confirmed Type aspirin 81 mg tablet 81 mg PO QDAY 01/04/22 01/04/22 History enoxaparin 60 mg/0.6 mL 60 mg subcut BID 01/04/22 01/04/22 History subcutaneous syringe insulin lispro 100 unit/mL 20 unit subcut TIDWMEAL 01/04/22 01/04/22 History subcutaneous pen (Admelog SoloStar U-100 Insulin lispro) prenat.vits,perez,[id number] 1 tab PO QDAY 01/04/22 01/04/22 History Allergies Allergy/AdvReac Type Severity Reaction Status Date / Time No Known Allergies Allergy Verified 01/17/25 13:38 Visit Medications Dextrose (Dextrose 50%-Water Inj 50 Ml Syringe) 25 ml IV [id number] PRN PRN Reason: Blood Sugar - Low Heparin Sodium (Porcine) (Heparin Sod Inj 5000 Unit/Ml Vial) 5,000 unit SC Q8HR CATY Stop: 01/31/25 21:59 Sodium Chloride (Ns) 1,000 mls @ 200 mls/hr IV .Q5H CATY Stop: 02/16/25 13:44 Last Admin: 01/17/25 16:21 Dose: 200 mls/hr Insulin Human Regular (Myxredlin) 100 unit in 100 mls @ 6.31 mls/hr IV .[id number] PRN; Protocol PRN Reason: PER PROTOCOL Stop: 02/16/25 16:47 Last Admin: 01/17/25 17:27 Dose: 0.1 unit/kg/hr, 6.31 mls/hr Potassium Chloride (Kcl Ivpb) 10 meq in 100 mls @ 100 mls/hr IV .Q1H PRN PRN Reason: IF POTASSIUM LESS THAN 3.3 Stop: 02/16/25 17:53 Magnesium Sulfate (Magnesium Sulfate Ivpb) 2 gm in 50 mls @ 25 mls/hr IV .Q2H PRN PRN Reason: PER DKA PROTOCOL Stop: 02/16/25 17:53 Dextrose/Lactated Ringer's (D5-Lr) 1,000 mls @ 250 mls/hr IV .Q4H PRN PRN Reason: PER PROTOCOL Stop: 02/16/25 17:53 Lactated Ringer's (Lactated Ringers) 1,000 mls @ 250 mls/hr IV .Q4H PRN PRN Reason: PER PROTOCOL Stop: 01/18/25 17:53 Potassium Chloride 20 meq/ (Lactated Ringer's) 1,010 mls @ 250 mls/hr IV .Q4H3M PRN PRN Reason: K LEVEL 3.3 TO 5.3mM/L Stop: 02/16/25 17:53 Potassium Chloride 40 meq/ (Lactated Ringer's) 1,020 mls @ 250 mls/hr IV .Q4H5M PRN PRN Reason: K LEVEL < 3.3 mM/L Stop: 02/16/25 17:53 Potassium Chloride 40 meq/ (Dextrose/Lactated Ringer's) 1,020 mls @ 250 mls/hr IV .Q4H5M PRN PRN Reason: K LEVEL < 3.3mM/L Stop: 02/16/25 17:53 Potassium Cl/Dextrose/Lact Ringer's (Kcl 20 Meq/L In D5-Lr) 20 meq in 1,000 mls @ 250 mls/hr IV .Q4H PRN PRN Reason: K LEVEL 3.3 TO 5.3 mM/L Stop: 02/16/25 17:53 Potassium Chloride (Kcl Ivpb) 10 meq in 100 mls @ 50 mls/hr IV PRN PRN PRN Reason: K LEVEL 3.3 to 5.3 & BG > 200 Stop: 02/16/25 17:53 Potassium Phosphate (Pot Phos 15 Mmol In Ns 250 Ml) 15 mmol in 250 mls @ 62.5 mls/hr IV PRN PRN PRN Reason: Phosphate <= 1mg/dL Stop: 02/16/25 17:53 Sodium Phosphate 15 mmol/ (Sodium Chloride) 255 mls @ 62.5 mls/hr IV .Q4H5M PRN PRN Reason: Phosphate <= 1mg/dL and K> than 5.3 Stop: 02/16/25 17:53 Ondansetron HCl (Ondansetron Inj 2 Mg/Ml Inj 2 Ml) 4 mg IV Q6H PRN; Protocol PRN Reason: NAUSEA OR VOMITING Stop: 02/16/25 17:48 Pantoprazole Sodium (Pantoprazole Inj 40 Mg Vial) 40 mg IVP QDAY CATY Stop: 02/16/25 17:59 Sodium Bicarbonate (Sodium Bicarb Inj 8.4% Syr 50 Ml Syringe) 50 ml IV PRN PRN PRN Reason: For ph <= to 7.0 Stop: 02/16/25 17:53 Discontinued Medications Sodium Chloride (Ns) 2,000 mls @ 1,000 mls/hr IV .Q2H ONE Stop: 01/17/25 15:31 Last Infusion: 01/17/25 16:00 Dose: Infused Piperacillin/Tazobactam/Dextrose (Zosyn) 3.375 gm in 50 mls @ 100 mls/hr IV X1 ONE Stop: 01/17/25 17:17 Last Admin: 01/17/25 17:15 Dose: 100 mls/hr Sodium Chloride (Ns) 1,000 mls @ 999 mls/hr IV .Q1H1M ONE Stop: 01/17/25 17:51 Last Admin: 01/17/25 16:57 Dose: 999 mls/hr Insulin Glargine (Insulin Glargine (Lantus) 5 Unit/0.05 Ml (Per 5 Units)) 25 unit SC X1 ONE Stop: 01/17/25 17:55 Insulin Human Regular (Insulin Hum Regular 1 Unit/0.01 Ml (Per Unit)) 12 unit SC X1 ONE Stop: 01/17/25 13:50 Last Admin: 01/17/25 14:04 Dose: 12 unit Ondansetron HCl (Ondansetron Inj 2 Mg/Ml Inj 2 Ml) 4 mg IV X1 ONE; Protocol Stop: 01/17/25 13:50 Last Admin: 01/17/25 14:06 Dose: 4 mg Assessment & Plan Plan 72-year-old female with past medical history of DM1, DVT and PE (on Xarelto), anxiety and 1 miscarriage, was admitted to the ICU 01/17/2025 due to DKA. 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 disease CVS: #Tachycardia Likely in the setting of dehydration Respiratory: No active disease Renal: #High anion gap metabolic acidosis #Lactic acidosis Patient may have anion gap of 19, bicarb of less than 10, and lactic acid of 3 There is most likely in the setting of DKA Will get every 4 renal panels and lactic acids IV fluids GI: #Intractable nausea and vomiting Patient has been having episodes of intractable nausea and vomiting likely in the setting of DKA Zofran ordered Endo: #DKA #Hx of DM1 Patient uses a insulin pump, but as of recently has been using more insulin than she normally does. She stated that this was likely due to her being recently sick. A1c on 09/25/2024 was 11.4 Blood glucose initially was 455 with beta hydroxybutyrate of 4.9 DKA protocol Lantus 25 units x 1 IV fluids Every 4 hours lactic acid and renal panel N.p.o. Heme: #Hx of DVT and PE Patient is currently on Xarelto due to a history of DVT and PE Patient also stated that she had 1 miscarriage and there is history of miscarriages in her family Will give heparin subcu for now given that she is n.p.o. Will start Xarelto again when patient is able to tolerate diet #Leukocytosis WBC 19.2 Most likely reactive Will continue to monitor #Normocytic normochromic anemia Patient's hemoglobin 11.6 Baseline is around 10-11 No active signs of bleeding Will continue to monitor ID: No active disease Hospital Maintenance: Diet: NPO DVT ppx: heparin subc GI ppx: protonix IV lines: PIV Posadas: none Code status: Full code Dispo: ICU for DKA Case disclosed with Attending Dr. Dru Orr PGY1 Attending Provider Attestation/Addendum Patient was seen with the PGY 1 and PGY 3 residents I agree on the above assessment and plan In brief This is a patient with type 1 diabetes with history of recurrent DKA Presenting with the following active medical problems Acute viral illness causing resistance to insulin Dehydration causing also introduced to not to be delivered appropriately Dehydration secondary to viral illness DKA with wide anion gap and high beta hydroxybutyrate acid History of DVT History of PE Plan Initiate DKA protocol Replace the insulin pump with Lantus Give half the usual daily dose of long-acting medication Continue with the insulin sign scale after roman catholic of the anion gap IV fluid as appropriate CC: 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
[2025-01-18 08:47] LABS: Cardiac Risk Estimate 2.8 RATIO (3.7-5.6); Cholesterol 133 mg/dL (132-200); HDL Cholesterol 47 mg/dL (40-60); LDL Cholesterol,Calculated 62 mg/dL (0-130); Triglycerides 122 mg/dL (30-150)
[2025-01-18] MEDS: SODIUM BICARB INJ 8.4% 1 mEq/ML 50 ML VIAL 50 MEQ IV (09:19)
[2025-01-18 09:59] LABS: Lactate (Lactic Acid) 1.2 mMol/L (0.4-2.0)
[2025-01-18 10:00] LABS: Base Excess, Venous -6 (-3-3); O2 Saturation, Venous 99 % (96-97); PCO2, Venous 33 mmHg (36-56); PO2, Venous 97 mmHg (15-58); pH, Venous 7.37 (7.33-7.66)
[2025-01-18 10:07] LABS: Beta Hydroxybutyrate 0.6 mmol/L (<0.6)
[2025-01-18 10:33] LABS: Albumin, Serum 3.4 gm/dL (3.5-5.0); Anion Gap 7 (7-16); BUN/Creatinine Ratio 7 Ratio (12-20); Blood Urea Nitrogen 5 mg/dL (9-23); Calcium 7.7 mg/dL (8.3-10.6); Calcium (Corrected) 8.2 mg/dL (8.5-10.1); Carbon Dioxide 20.8 mMol/L (20.0-31.0); Chloride 115 mMol/L (98-107); Creatinine (Component) 0.7 mg/dL (0.6-1.3); Estimated Creatinine Clearance 103.5 mL/min (>60); Glucose 142 mg/dL (74-106); Magnesium 1.7 mg/dL (1.6-2.6); Osmolality,Calculated 284 (275-295); Phosphorous 1.4 mg/dL (2.4-5.1); Potassium 3.8 mMol/L (3.4-5.1); Sodium 143 mMol/L (136-145); eGFR > 60 See Note
--- NOTE | 2025-01-18 10:48 | PC.NURSE ---
Per Dr. Bahena, insulin regular gtt, and fluids, turned off at 1042, confirmed lantus not given with Dr. Bahena, confirmed lantus to be given QDAY at 1900, bs checked at 1043
--- NOTE | 2025-01-18 10:51 | PD.RESPRO ---
Documentation for date of: 01/18/25 Subjective Subjective Interval history: 29-year-old female with past medical history of DM1, DVT and PE (on Xarelto), anxiety and 1 miscarriage, was admitted to the ICU on 01/17/2025 after coming to the ED with complaints of nausea and vomiting. In the ED patient was found to have blood sugars of 455 and beta hydroxybutyrate of 4.9. Patient states that these past few days she has been feeling sick with some cold-like symptoms and stated that she has an insulin pump, but her blood sugars have been out of control as of recently due to her feeling sick. She mentioned normally uses 50 units/day of the insulin, but that since yesterday she used all the insulin in the pump and ran out of insulin today. She was recently admitted on August 2024 due to DKA. She also stated that her kids are sick with similar symptoms that she had. She admitted having a productive cough, headaches, nausea, vomitings, and postnasal drip, but denied any chest pain, fevers, shortness of breath, lower extremity swelling, dysuria, or blood in the stools or vomit. 01/18/2025: Patient was seen examined at bedside this morning. No acute overnight events. Patient today feels a lot better and does not complain of any nausea or abdominal pain. Her anion gap did close twice already, but she still has some metabolic acidosis therefore she was given a amp of sodium bicarb. Started diet and discontinued patient's insulin drip and will give Lantus 40 units at 7 PM and will continue with ISS for now as she got Lantus 25 units yesterday 7 PM. Mother and were at bedside and all questions were answered as patient was okay to discuss medical information with them. Will downgrade to medical floors as patient is stable and DKA has resolved. Exam Vital Signs Temp Pulse Resp BP Pulse Ox O2 Del Method FiO2 99.8 F 95 12 96/58 L 99 Room Air 99 01/17/25 22:53 01/18/25 06:00 01/18/25 06:00 01/18/25 06:00 01/18/25 06:00 01/18/25 01:00 01/17/25 18:39 Narrative Exam General: A/O x3, no acute distress, well-nourished, well-developed Eyes: PERRL, EOMI. Anicteric, vision grossly intact. Ears: No ear pain, no ear discharge, Hearing grossly intact. Nose: No nasal discharge. Mouth/Throat: Dry mucous membranes, no redness, no lesions. Neck: Neck supple, non-tender, no cervical lymphadenopathy. Lungs: Clear IBAN to auscultation and percussion, No accessory muscle use. Cardio: Normal S1/S2, regular rhythm, no murmurs, no JVD Abdomen: Soft, non-tender, no palpable masses, peristalsis present, no guarding or rebound. Extremities: Symmetrical, no significant deformities, no peripheral edema , non-tender, peripheral pulses presents. Skin: No rashes, no lesions, warm to touch. Neuro: No focal neurological deficits. motor and sensory intact. Psych: Cooperative, appropriate mood and effect. Objective Labs 01/18/25 06:30 01/18/25 14:10 Labs: Laboratory Results - last 24 hr 01/17/25 01/17/25 01/17/25 10:20 15:05 15:35 WBC 19.2 H RBC 4.45 Hgb 11.6 L Hct 38.3 MCV 86 MCH 26.1 MCHC 30.3 L RDW Std Deviation 53.3 H Plt Count 412 Neut % (Auto) 87 H Lymph % (Auto) 9 L [place] % (Auto) 4 Eos % (Auto) 0 Baso % (Auto) 0 Neut # (Auto) 16.7 H Lymph # (Auto) 1.7 [place] # (Auto) 0.7 Eos # (Auto) 0.0 Baso # (Auto) 0.0 Immature Gran # (Auto) 0.09 H Absolute Nucleated RBC 0.00 Immature Gran % 1 H Nucleated RBC % 0 VBG pH 6.95 L VBG pCO2 30 L VBG pO2 66 H VBG O2 Sat ([place]) 83 L VBG Base Excess -24 L Sodium 138 Potassium 5.0 Chloride 109 H Carbon Dioxide < 10.0 L* Anion Gap 19 H BUN 14 Creatinine 1.0 Estim Creat Clear Calc 73.8 eGFR > 60 BUN/Creatinine Ratio 14 Glucose 455 H* Calculated Osmolality 296 H Lactic Acid 3.0 H Calcium 8.2 L Corrected Calcium 8.2 L Phosphorus Magnesium Total Bilirubin 0.3 AST 57 H ALT 32 Alkaline Phosphatase 154 H Troponin I < 0.002 Total Protein 7.9 Albumin 4.7 Globulin 3.2 Albumin/Globulin Ratio 1.5 Triglycerides Cholesterol LDL Cholesterol, Calc HDL Cholesterol Cholesterol/HDL Ratio Lipase 30 Beta-Hydroxybutyrate/Acetoacetate 4.9 H TSH Ur Collection Type Catheter Urine Color Colorless A Urine Clarity Clear Urine pH 5.5 Ur Specific [employer] [place] 1.029 Urine Protein Trace Urine Glucose (UA) 4+ A Urine Ketones 4+ A Urine Blood 3+ A Urine Nitrite Negative Urine Bilirubin Negative Urine Urobilinogen (Auto) Negative Ur Leukocyte Esterase Negative Urine RBC 295 H Urine WBC 3 Ur Squamous Epith Cells < 1 Urine Bacteria Rare Ur Culture Indicated? Not Indicated Urine HCG, Qual Negative RSV Rapid Group A Strep Rapid Negative 01/17/25 01/17/25 01/18/25 16:36 21:45 02:30 WBC RBC Hgb Hct MCV MCH MCHC RDW Std Deviation Plt Count Neut % (Auto) Lymph % (Auto) [place] % (Auto) Eos % (Auto) Baso % (Auto) Neut # (Auto) Lymph # (Auto) [place] # (Auto) Eos # (Auto) Baso # (Auto) Immature Gran # (Auto) Absolute Nucleated RBC Immature Gran % Nucleated RBC % VBG pH 7.15 L 7.28 L VBG pCO2 24 L 30 L VBG pO2 53 117 H D VBG O2 Sat ([place]) 86 L 100 H VBG Base Excess -19 L -11 L Sodium 140 137 Potassium 4.8 4.0 D Chloride 115 H 114 H Carbon Dioxide < 10.0 L* 13.6 L* Anion Gap 15 9 BUN 7 L 6 L Creatinine 0.9 0.8 Estim Creat Clear Calc 82.0 92.2 eGFR > 60 > 60 BUN/Creatinine Ratio 8 L 8 L Glucose 234 H D 179 H D Calculated Osmolality 285 275 Lactic Acid 1.7 0.5 Calcium 7.3 L 7.5 L Corrected Calcium 7.5 L 7.8 L Phosphorus 2.4 1.6 L Magnesium 1.7 2.1 Total Bilirubin AST ALT Alkaline Phosphatase Troponin I Total Protein Albumin 3.8 D 3.6 Globulin Albumin/Globulin Ratio Triglycerides Cholesterol LDL Cholesterol, Calc HDL Cholesterol Cholesterol/HDL Ratio Lipase Beta-Hydroxybutyrate/Acetoacetate TSH Ur Collection Type Urine Color Urine Clarity Urine pH Ur Specific [employer] [place] Urine Protein Urine Glucose (UA) Urine Ketones Urine Blood Urine Nitrite Urine Bilirubin Urine Urobilinogen (Auto) Ur Leukocyte Esterase Urine RBC Urine WBC Ur Squamous Epith Cells Urine Bacteria Ur Culture Indicated? Urine HCG, Qual RSV Rapid Negative Group A Strep Rapid 01/18/25 01/18/25 06:30 09:50 WBC 9.6 D RBC 3.51 L Hgb 9.1 L D Hct 28.4 L MCV 81 MCH 25.9 MCHC 32.0 RDW Std Deviation 50.4 H Plt Count 280 D Neut % (Auto) 57 Lymph % (Auto) 34 [place] % (Auto) 8 Eos % (Auto) 0 Baso % (Auto) 0 Neut # (Auto) 5.5 Lymph # (Auto) 3.3 [place] # (Auto) 0.8 Eos # (Auto) 0.0 Baso # (Auto) 0.0 Immature Gran # (Auto) 0.02 H Absolute Nucleated RBC 0.00 Immature Gran % 0 Nucleated RBC % 0 VBG pH 7.37 7.37 VBG pCO2 28 L 33 L VBG pO2 136 H 97 H D VBG O2 Sat ([place]) 100 H 99 H VBG Base Excess -8 L -6 L Sodium 137 143 Potassium 4.0 3.8 Chloride 113 H 115 H Carbon Dioxide 13.3 L* 20.8 Anion Gap 11 7 BUN 6 L 5 L Creatinine 0.8 0.7 Estim Creat Clear Calc 90.5 103.5 eGFR > 60 > 60 BUN/Creatinine Ratio 8 L 7 L Glucose 152 H 142 H Calculated Osmolality 274 L 284 Lactic Acid 1.2 1.2 Calcium 7.6 L 7.7 L Corrected Calcium 8.0 L 8.2 L Phosphorus 1.5 L 1.4 L Magnesium 1.9 1.7 Total Bilirubin AST ALT Alkaline Phosphatase Troponin I Total Protein Albumin 3.5 3.4 L Globulin Albumin/Globulin Ratio Triglycerides 122 Cholesterol 133 LDL Cholesterol, Calc 62 HDL Cholesterol 47 Cholesterol/HDL Ratio 2.8 L Lipase Beta-Hydroxybutyrate/Acetoacetate 0.6 H TSH 0.57 Ur Collection Type Urine Color Urine Clarity Urine pH Ur Specific [employer] Urine Protein Urine Glucose (UA) Urine Ketones Urine Blood Urine Nitrite Urine Bilirubin Urine Urobilinogen (Auto) Ur Leukocyte Esterase Urine RBC Urine WBC Ur Squamous Epith Cells Urine Bacteria Ur Culture Indicated? Urine HCG, Qual RSV Rapid Group A Strep Rapid ABG Interpretation ABG results: 01/17/25 01/17/25 01/18/25 15:05 21:45 02:30 VBG pH 6.95 L 7.15 L 7.28 L VBG pCO2 30 L 24 L 30 L VBG pO2 66 H 53 117 H D VBG Base Excess -24 L -19 L -11 L 01/18/25 01/18/25 06:30 09:50 VBG pH 7.37 7.37 VBG pCO2 28 L 33 L VBG pO2 136 H 97 H D VBG Base Excess -8 L -6 L Quality Measures Quality Measures none Assessment & Plan Assessment Current Active Medications: Generic Name Dose Route Start Last Admin Trade Name Freq PRN Reason Stop Dose Admin Acetaminophen 650 mg 01/17/25 20:53 01/18/25 00:41 Acetaminophen 325 Mg Tablet PO 02/16/25 20:52 650 mg Q6HR PRN Administration Pain 1-3 or fever >100.4 Dextrose 25 ml 01/18/25 10:13 Dextrose 50%-Water Inj 50 Ml Syringe IV 02/17/25 10:12 Q15MIN PRN BG 50-70 responsive npo pt Dextrose 50 ml 01/18/25 10:13 Dextrose 50%-Water Inj 50 Ml Syringe IV 02/17/25 10:12 Q15MIN PRN BG <50 OR BG <70 & pt unresponsive Glucagon 1 mg 01/18/25 10:13 Glucagon Inj 1 Mg Vial IM Q15MIN PRN BG <70, and no IV access Heparin Sodium (Porcine) 5,000 unit 01/17/25 22:00 01/18/25 06:06 Heparin Sod Inj 5000 Unit/Ml Vial SC 01/31/25 21:59 5,000 unit Q8HR CATY Administration Dextrose/Lactated Ringer's 1,000 mls @ 250 mls/hr 01/18/25 06:21 01/18/25 06:00 D5-Lr IV 02/17/25 06:20 250 mls/hr .Q4H PRN Administration PER PROTOCOL Insulin Glargine 40 unit 01/18/25 19:00 Insulin Glargine (Lantus) 5 Unit/0.05 Ml (Per 5 Units) SC 02/17/25 18:59 QDAY@1900 [facility] Insulin Human Lispro 0 unit 01/18/25 11:30 Insulin Lispro (Admelog) 1 Unit/0.01 Ml Unit SC 02/17/25 11:29 AC [facility] Protocol Ondansetron HCl 4 mg 01/17/25 17:49 01/17/25 22:34 Ondansetron Inj 2 Mg/Ml Inj 2 Ml IV 02/16/25 17:48 4 mg Q6H PRN Administration NAUSEA OR VOMITING Protocol Pantoprazole Sodium 40 mg 01/17/25 18:00 01/18/25 08:22 Pantoprazole Inj 40 Mg Vial IVP 02/16/25 17:59 40 mg QDAY CATY Administration Plan 29-year-old female with past medical history of DM1, DVT and PE (on Xarelto), anxiety and 1 miscarriage, was admitted to the ICU 01/17/2025 due to DKA. 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 She stated that this was likely due to her being recently sick. A1c on 09/25/2024 was 11.4 And a gap has closed twice already and metabolic acidosis resolved Patient's blood sugars down to the 152's Will start p.o. diet Glargine 40 units at 7 PM ISS Heme: #Hx of DVT and PE Patient is currently on Xarelto due to a history of DVT and PE Patient also stated that she had 1 miscarriage and there is history of miscarriages in her family Will start Xarelto #Leukocytosis, resolved WBC 9.6 #Normocytic normochromic anemia Patient's hemoglobin 9.1 today, most likely hemodilutional Baseline is around 10-11 No active signs of bleeding Will continue to monitor ID: No active disease Hospital Maintenance: Diet: Carb consistent DVT ppx: Xarelto GI ppx: protonix IV lines: PIV Posadas: none Code status: Full code Dispo: Downgrade to medical floors Case disclosed with Attending Dr. Dru Orr PGY1 Disclaimer: This note was dictated by speech recognition, therefore there may be minor errors in selling manager due to voice. Attending Provider Attestation/Addendum I saw the patient with the PGY 1 and PGY 3 residents. I agree with above assessment and plan Patient was admitted yesterday with DKA secondary to dehydration viral syndrome Today she is improved Her anion gap closed Bicarb still 13 but that is probably induced by thethat she got Her anion gap is 9 Patient will be downgraded to MedSurg with telemetry Patient is switched to long-acting insulin with Lantus at 40 units/day and Humalog sliding scale IV insulin was stopped Blood sugar will be 4 times daily with insulin coverage
[2025-01-18] MEDS: RIVAROXABAN 10 MG TABLET 20 MG PO (11:31)
[2025-01-18 14:36] LABS: Lactate (Lactic Acid) 0.8 mMol/L (0.4-2.0)
[2025-01-18 15:03] LABS: Albumin, Serum 3.3 gm/dL (3.5-5.0); Anion Gap 9 (7-16); BUN/Creatinine Ratio 7 Ratio (12-20); Blood Urea Nitrogen < 5 mg/dL (9-23); Calcium 7.5 mg/dL (8.3-10.6); Calcium (Corrected) 8.1 mg/dL (8.5-10.1); Carbon Dioxide 19.4 mMol/L (20.0-31.0); Chloride 113 mMol/L (98-107); Creatinine (Component) 0.7 mg/dL (0.6-1.3); Estimated Creatinine Clearance 100.9 mL/min (>60); Glucose 197 mg/dL (74-106); Magnesium 1.6 mg/dL (1.6-2.6); Osmolality,Calculated 283 (275-295); Phosphorous 1.5 mg/dL (2.4-5.1); Potassium 3.6 mMol/L (3.4-5.1); Sodium 141 mMol/L (136-145); eGFR > 60 See Note
[2025-01-18] MEDS: INSULIN LISPRO (AdmeLOG) 1 UNIT/0.01 ML UNIT SC (17:25)
[2025-01-18] MEDS: INSULIN GLARGINE (Lantus) 5 UNIT/0.05 ML (PER 5 UNITS) 40 UNIT SC (19:32)
--- NOTE | 2025-01-18 19:43 | PC.NURSE ---
Called and verified with MD if they would like the lispro to only be AC instead of ACHS. NOC Resident verified that only AC for the lispro.
[2025-01-19 06:32] LABS: Alanine Aminotransferase 23 U/L (10-49); Albumin, Serum 3.5 gm/dL (3.5-5.0); Albumin/Globulin Ratio 1.3 (1.2-2.2); Alkaline Phosphatase 98 U/L (46-116); Anion Gap 8 (7-16); Aspartate Amino Transferase 34 U/L (0-34); BUN/Creatinine Ratio 8 Ratio (12-20); Bilirubin,Total 0.3 mg/dL (0.3-1.2); Blood Urea Nitrogen < 5 mg/dL (9-23); Calcium (Corrected) 8.4 mg/dL (8.5-10.1); Carbon Dioxide 22.6 mMol/L (20.0-31.0); Chloride 108 mMol/L (98-107); Creatinine (Component) 0.6 mg/dL (0.6-1.3); Estimated Creatinine Clearance 117.7 mL/min (>60); Globulin 2.6 gm/dL (2.3-3.5); Glucose 126 mg/dL (74-106); Osmolality,Calculated 276 (275-295); Potassium 3.4 mMol/L (3.4-5.1); Sodium 139 mMol/L (136-145); Total Protein 6.1 gm/dL (5.7-8.2); eGFR > 60 See Note
[2025-01-19 06:49] LABS: Basophils % (Auto) 0 % (0-2.5); Eosinophils # (Auto) 0.2 Thou/mm3 (0.0-0.5); Eosinophils % (Auto) 3 % (0-10); Hematocrit 29.3 % (36.0-46.0); Hemoglobin 9.2 g/dL (12.0-16.0); Immature Granulocytes % (Auto) 0 % (0-0); Immature Granulocytes Auto 0.01 Thou/mm3 (0.00-0.00); Lymphocytes # (Auto) 3.4 Thou/mm3 (1.0-4.8); Lymphocytes % (Auto) 54 % (10-50); Mean Corpuscular HGB Conc 31.4 g/dl (31.0-37.0); Mean Corpuscular Hemoglobin 25.7 pg (25.0-35.0); Mean Corpuscular Volume 82 fL (80-100); Monocytes # (Auto) 0.3 Thou/mm3 (0.0-0.8); Monocytes % (Auto) 5 % (0-12); Neutrophils # (Auto) 2.5 Thou/mm3 (1.8-7.7); Neutrophils % (Auto) 38 % (37-80); Nucleated Red Blood Cell % 0 /100 WBC (0); Platelet Count 323 Thou/mm3 (140-440); RDW Standard Deviation 51.1 fL (36.4-46.3); Red Blood Count 3.58 Miln/mm3 (4.00-5.20); White Blood Count 6.4 Thou/mm3 (3.6-11.0)
[2025-01-19] MEDS: POT PHOS 15 mMol in NS 250 ML 15 MMOL/250 ML BAG 62.5 MMOL IV (09:28)
[2025-01-19] MEDS: RIVAROXABAN 10 MG TABLET 20 MG PO (09:28)
[2025-01-19] MEDS: NAPH,KPH MBDB 1 PACKET (1.5 GM) PO (12:27)
[2025-01-19] MEDS: POTASSIUM CHLORIDE 20 mEq TABCR 40 MEQ PO (12:27)
--- NOTE | 2025-01-19 13:23 | ESDS_ITS ---
<Statement entered by Anshu Edwards MD - 01/25/25 08:18> I reviewed above note and agree with findings and plans. I have also personally examined the patient with medicine team and went over assessment and plan with medical team including partner marketing intern and resident physician. Planned Discharge Date 01/19/25 DS: Providers Provider Date of admission: 01/17/25 17:49 Primary care physician: WILMER Pool Admitting Provider: Zack Orr MD Attending Provider on Admission: Savannah Gonsales MD Consults: 01/17/25 17:55 Referral Registered Dietitian Routine Comment: Attending Provider on DC: Chico Mccarty MD Discharging Provider: Chico Mccarty MD DS: Diagnosis Problem List Completed Was Problem List Reviewed/Reconciled?: Yes Hospital Course Hospital Course Hospital course: Ms. 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 Initial evaluation revealed hyperglycemia with a blood glucose level of 455 mg/dL and an elevated beta-hydroxybutyrate level of 4.9 mmol/L. She was diagnosed with diabetic ketoacidosis (DKA). Despite reporting adherence to her insulin regimen and regular follow-up with her stave log ripsaw operator, it is suspected that the DKA was precipitated by a recent upper respiratory infection. The patient was admitted to the Intensive Care Unit for management of DKA. Her anion gap closed with appropriate treatment, and she was subsequently downgraded to the medical floor on 01/18/2025. Her nausea, vomiting, and abdominal pain resolved. Blood glucose levels remained well-controlled on the ICU-initiated regimen of 40 units of i nsulin glargine daily with a sliding scale for correction. Her anion gap remains closed, and metabolic acidosis has resolved. A hemoglobin A1c obtained during hospitalization was 11.4%, indicating suboptimal long-term glycemic control. She has been counseled on the importance of adjusting her insulin regimen in collaboration with her stave log ripsaw operator and advised to repeat the A1c in approximately three months. As of discharge, the patient is hemodynamically stable, symptom-free, and has been out of DKA for over 24 hours. She is deemed medically stable for discharge to home with instructions for self-care and close outpatient follow-up. Discharge Recommendations -Follow up with your primary care with in 1 week after discharge -Follow up with your stave log ripsaw operator within 1 week and discuss if any adjustments needs to be made with your insulin pump -Continue using your insulin pump as directed by your stave log ripsaw operator -Continue taking your other medications as directed -If your symptoms return or worsen please return to the ED immediately Hospitalization Diagnosis #Intractable nausea and vomiting, resolved #High anion gap metabolic acidosis, resolved #Lactic acidosis, resolved #Tachycardia, resolved #DKA #Hx of DM1 #Hx of DVT and PE #Leukocytosis, resolved #Normocytic normochromic anemia Assessment and plan discussed with attending physician Dr. Jerry Mccarty (PGY-1)- Internal medicine resident Time Spent with Patient Time attestation: Total time spent providing and/or coordinating discharge services: Time spent: Greater than 30 minutes Exam Vital Signs Temp Pulse Resp BP Pulse Ox O2 Del Method FiO2 99.0 F 91 20 110/69 100 Room Air 99 01/18/25 20:04 01/18/25 20:04 01/18/25 19:20 01/18/25 20:04 01/18/25 20:04 01/18/25 12:02 01/17/25 18:39 Narrative Exam GENERAL: A&Ox3 .cooperate, well nourished young female, Not in acute distress NEURO: no focal neurological deficits HEENT: Atraumatic, Normocephalic. mucous membranes moist. Eyes open, symmetrical, & clear HEART: Normal Heart Sounds LUNGS: Clear to auscultation with no wheezing or crackles. ABDOMEN: soft, non-distended, non-tender, bowel sounds heard, no guarding or rebound tenderness SKIN: No Rash or ecchymoses EXTREMITIES: No edema, tenderness, able to move all 4 extremities, pedal pulses palpated Discharge Plan Plan Patient Disposition: HOME (Self Care) Care Plan Goals: -Follow up with your primary care with in 1 week after discharge -Follow up with your stave log ripsaw operator within 1 week and discuss if any adjustments needs to be made with your insulin pump -Continue using your insulin pump as directed by your stave log ripsaw operator -Continue taking your other medications as directed -If your symptoms return or worsen please return to the ED immediately Prescriptions/Referrals Prescriptions/Med Rec: Continued Xarelto 20 mg tablet 20 mg PO QDAY Patient Comments: TAKE 1 TABLET BY MOUTH ONCE DAILY (DME) Omnipod 5 G6-G7 Pods (Gen 5) Cartridge SUBCUT Patient Comments: 100 UNIT POD TO BE REPLACED NEEDED FOR 30 DAYS Discontinued prenat.vits,perez,[id number]-[id number] Tablet 1 tab PO QDAY Referrals: Alana Riddle FNP [Primary Care Provider] - Patient/Caregiver Discharge Instructions Education Materials: Diabetes: Sick-Day Plan, Diabetes: Living Your Life, Diabetes: Meal Planning, Diabetic Ketoacidosis Print Language: Danish Stand Alone Forms: [employer] Award Info., Patient Portal Info Letter Discharge Order Discharge Orders: Discharge (Routine); Ordered 01/19/25 Ordered By: Chico Mccarty Quality Discharge Quality Measures VTE prophylaxis
== END 2025-01-19 13:46 | disposition home or self-care (01) | DRG 639 ==
LOC: SERX 16:54 → SERHOLD 18:57 → S2SX 01-18 06:42 → S3SX 01-18 22:05
PROVIDERS: Student in an Organized Health Care Education/Training Program; Emergency Provider Emergency Medicine; PCP Nurse Practitioner Family; Visit Provider Emergency Medicine
DX: E10.10 Type 1 diabetes mellitus with ketoacidosis without coma (principal); E86.0 Dehydration; I10 Essential (primary) hypertension; D64.9 Anemia, unspecified; R16.0 Hepatomegaly, not elsewhere classified; D72.829 Elevated white blood cell count, unspecified; F17.200 Nicotine dependence, unspecified, uncomplicated; Z96.41 Presence of insulin pump (external) (internal); R00.0 Tachycardia, unspecified; Z86.711 Personal history of pulmonary embolism; Z86.718 Personal history of other venous thrombosis and embolism; T38.3X6A Underdosing of insulin and oral hypoglycemic [antidiabetic] drugs, initial encounter; Z79.01 Long term (current) use of anticoagulants; Z79.4 Long term (current) use of insulin; Z98.891 History of uterine scar from previous surgery
CPT/HCPCS: 36415; 71045; 80053; 80061; 80069; 81001; 81025; 82010; 82803; 83605; 83690; 83735; 84100; 84443; 84484; 85025; 87040; 87081; 87400; 87634; 87651; 87811; 96361; 96365; 96366; 96372; 96374; 96375; 99291; J1643; J1815; J2405; J2470; J2543; J3475; J3480; J7030; J7120; J7121; J7999; A9270